=== PATIENT | female | born 1940 | race Caucasian/White ===

== ENCOUNTER 2016-10-15 14:03 | Inpatient (IN) | payer MEDICARE ==
[~2016-10-15] VITALS: Ht 157.4 cm; Wt 60.4 kg
--- NOTE | ~2016-10-15 | DS ---
[place], [place] DISCHARGE SUMMARY NAME: SHELBI SUMNER [facility] #: [id number] UNIT #: [id number] ROOM: 406 DOCTOR: KENJI MARS MD BIRTHDATE: [birth year] DOS: 10/17/2016 HOSPITAL COURSE: This patient is 76 years old. The patient comes into the office with complaints of pain between the shoulder blades, this is mostly when she eats. She also has been increasingly tired and short of breath. On examination, she was found to have rales diffusely throughout the lung baltazar. Exercise oximetry did not show any desaturation. She was admitted with diagnosis of angina and shortness of breath. After admission, the patient was placed on a monitored floor. No arrhythmias were noted. The patient was ordered to rule out WI protocol. Enzymes were negative. Echocardiogram was ordered and a stress test was performed once the patient ruled out. I do not have the echo report, but the patient's stress test did not show any evidence of reversible perfusion defects. A chest x-ray done in the Emergency Room did not show any evidence of PE, but interstitial fibrosis was noted. CT of the chest confirmed it and this could be from history of PE. The patient also had some bronchiectatic changes. The patient was ordered a PFT, showed some obstructive airway disease. She is already on Spiriva and Dulera, which she was placed. For her diabetes, she is on Januvia and glipizide. Blood sugars fairly controlled, no changes made further in her treatment plan. The patient is stable and can be discharged today. She did develop some confusion during the night, got dressed up. Her daughter had to be called, this is most likely from altered sensorium from Ambien that she takes. She usually does not have any issues at home with the medicine. Mental status is back to her baseline, so she can be discharged safely. DISCHARGE MEDICATIONS: Spiriva 1 puff at bedtime, Dulera 100 two puffs daily, gabapentin 300 b.i.d., loratadine 10 daily, warfarin 2.5 daily, zolpidem 5 at bedtime, propranolol 20 b.i.d., simvastatin 20 daily, glipizide 5 daily, Januvia 100 daily, lisinopril 2.5 daily. DISCHARGE DIAGNOSES: 1. Angina, ruled out for myocardial infarction with negative stress test. 2. Chronic interstitial lung disease with obstructive airway disease. 3. Acute respiratory distress syndrome. 4. Benign hypertension. 5. History of pulmonary embolism, deep venous thrombosis, on long-term use of anticoagulants. 6. Primary insomnia. [place], [place] DISCHARGE SUMMARY NAME: SHELBI SUMNER UNIT #: [id number] ROOM: [facility] DOCTOR: KENJI MARS MD BIRTHDATE: [birth year] KENJI MARS MD CM:PATRICIO [id number] KENJI MARS MD 10/17/16 1218 interface
--- NOTE | ~2016-10-15 | ST ---
[place], [place] EXERCISE STRESS TEST REPORT NAME: SHELBI SUMNER [facility] #: [id number] UNIT #: [id number] ROOM: 406 DOCTOR: KENJI MARS MD BIRTHDATE: [birth year] DOS: 10/16/2016 The patient was scheduled for a Lexiscan stress test. REASON FOR TESTING: Evaluation of shortness of breath. After explaining the procedure and obtaining consent, the patient was subjected to Lexiscan infusion 0.4 mg IV, resting heart rate was 73 with a blood pressure of 122/88. EKG showed sinus, occasional PVCs were seen during the infusion. The patient did not have any complaints of chest pain. After the infusion was over, she was injected with Myoview Cardiolite and stress images were taken. ASSESSMENT AND PLAN: Lexiscan stress test without any ST-T wave changes. Arrhythmias in the form of PVCs were noted. Cardiolite images were pending. KENJI MARS MD CM:STRESS:EXERCISE STRESS TEST REPORT [id number] KENJI MARS MD
--- NOTE | ~2016-10-15 | WRIGHTHP ---
[place], [place] PATIENT HISTORY AND PHYSICAL EXAM NAME: SHELBI SUMNER [facility] #: [id number] UNIT #: [id number] ROOM: 406 DOCTOR: KENJI MARS MD BIRTHDATE: [birth year] DOS: 10/15/2016 HISTORY OF PRESENT ILLNESS: The patient is 76 years old who comes in with complaints of pain in between her shoulder blades. The patient states that she has had increasing tiredness and shortness of breath for the last few months. She also has noticed pain in between the shoulder blades, especially when she eats. She denies having any retrosternal chest pain or radiation of pain. Does not have any fever or chills, any cough, any abdominal pain or nausea, any emesis. Does not have any leg edema. PAST MEDICAL HISTORY: Significant for: 1. Benign hypertension. 2. Type 2 diabetes mellitus, zle-dyuzdkj-[id number]. 3. History of PE with pulmonary hypertension. 4. History of cardiac catheterization in 2013. Exact results not known. 5. History of CVA. 6. History of DVT. MEDICATIONS: That she is on are gabapentin 300 b.i.d., glipizide 5 daily, lisinopril 2.5 daily, loratadine 10 daily, propranolol 20 b.i.d., simvastatin 20 daily, Januvia 100 daily, warfarin 2.5 daily, zolpidem 5 at bedtime, ondansetron 4 mg q. 4 p.r.n. SOCIAL HISTORY: Nonsmoker. Does not use any alcohol. She lives alone. Her was a smoker. PHYSICAL EXAMINATION: GENERAL: She is awake and alert and oriented. VITAL SIGNS: Blood pressure is 102/58, pulse of 79, respirations 18, temperature 97.8. LUNGS: Diminished breath sounds. Scattered rales heard all throughout the lung baltazar. HEART: Regular. ABDOMEN: Obese, soft, nontender. EXTREMITIES: Without any edema. ASSESSMENT AND PLAN: 1. The patient presents with pain in between the shoulder blades, especially after eating. Could have an anginal component. The patient has risk factors including benign hypertension. We will go ahead and arrange for a stress test and a troponin level. 2. Complaints of shortness of breath and tiredness. With examination, showing evidence of possible congestive heart failure. The patient has been admitted. IV diuretics will be given. Echocardiogram is ordered. Cardiology consultation is obtained. 3. Chest x-ray showing interstitial lung disease. A CT of the chest is ordered. Maximal bronchodilators were given. PFT and DLCO will be ordered. 4. Chronic history of pulmonary embolism, on long-term use of anticoagulants. Continue Coumadin. Pro time is being checked. [place], [place] PATIENT HISTORY AND PHYSICAL EXAM NAME: SHELBI SUMNER [facility] #[facility] [id number] UNIT #: [id number] ROOM: [facility] DOCTOR: KENJI MARS MD BIRTHDATE: [birth year] KENJI MARS MD CM:HISPHYS:PATIENT HISTORY AND PHYSICAL EXAMINATION 8 5 KENJI MARS MD 10/16/1656 interface
--- NOTE | ~2016-10-15 | PF ---
[place], [place] PULMONARY FUNCTION TEST [id number] UNIT #: [id number] ROOM: 406 DOCTOR: ANANYA BRIGGS MD,CRISTIAN BIRTHDATE: [birth year] DOS: 10/16/2016 ORDERED BY: Dr. Becky Leon. HISTORY: The patient recorded as a 76-year-old female, height of 62 inches, weighs 129 pounds, BMI of 23.6, presented for complete pulmonary function test. The test was ordered by Dr. Becky Leon. The patient reported symptoms of dyspnea with exertion. Past history of CHF was also noted. The patient does have symptoms of productive cough without any wheezing. There was no past tobacco use. SPIROMETRY: The FVC was recorded 2.18 liters, 89% predicted value normal. The post-bronchodilator does not show any changes in the ____ FVC. The FEV1 recorded 1.70 liters as 93% predicted value normal as well without any significant changes occurred post-bronchodilator testing as well. Ratio of FEV1/FVC was recorded as 78%. The flow volume loop for this patient was noted as normal except some coughing noted during the testing. The lung volumes, thoracic gas volume recorded as 89%, residual volume 65%, total lung capacity 75%. The lung volume was noted with mild restrictive lung disease. The patient's lung diffusion recorded 43%, which was severely decreased without correction of carbon monoxide or hemoglobin values. The patient's airway resistance and passive conductance was noted normal, however, partial improvement occurred postbronchodilator test. FINAL IMPRESSION: 1. The test is suggestive of a definitive finding of mild restrictive lung disease, the patient to be clinically correlated to the patient's history as well as the radiology data for this patient. 2. Possibility of mild reversible obstructive lung disease cannot be completely excluded. Clinical correlation would be advised. CRISTIAN HARE MD CM:PFREPORT:PULMONARY FUNCTION TEST [id number] CRISTIAN BRIGGS MD
--- NOTE | ~2016-10-15 | PR ---
[place], [place] PROGRESS NOTE NAME: SHELBI SUMNER [facility] #: [id number] UNIT #: [id number] ROOM: 406 DOCTOR: KENJI MARS MD BIRTHDATE: [birth year] DOS: 10/17/2016 SUBJECTIVE: The patient is doing fine without any complaints. Denies any chest pains or palpitations. She was pretty anxious during the night and got slightly confused and dressed up and wanted to leave. Her daughter came and sat with her. This morning, she is pretty lucid and knows what is going on. She is anxious and wants to go home. OBJECTIVE: VITAL SIGNS: Blood pressure is 135/85, pulse of 98, respirations 20, temperature 98.6. LUNGS: Diminished breath sounds, clear. HEART: Regular. ABDOMEN: Soft. EXTREMITIES: Without any edema. ASSESSMENT AND PLAN: 1. Chest pain, anginal in nature, also pain between the shoulder blades. She was ruled out for myocardial infarction, underwent a stress test which did not show any evidence of reversible perfusion defects. 2. Interstitial lung disease with history of pulmonary embolism. The patient has obstructive lung disease on a PFT, which is done yesterday. The patient is placed on inhalers and doing well. 3. Type 2 diabetes mellitus. Blood sugar is 183 this morning. The patient's medications will be readjusted, but the patient is stable and can be discharged to home today. KENJI MARS MD CM:PNTRANS [id number] KENJI MARS MD 10/17/16 1419 interface
[~2016-10-15 14:03] MED LIST: ALAVERT10 M1 PO; AMBIEN5 MG PO; ASPIRIN81 M1 PO; CALTRATE 600 +1 TA1 PO; CHOLESTEROL MA600 MG PO; CILOXAN 5 ML5 M1 OT; CIPRO250 MG PO; COUMADIN2 M1 PO; EFFEXOR37.5 MG PO; EPA FISH OIL1000 MG PO; FLUTICASON0.05 MG/A2 NAS; GLIPIZIDE5 MG PO; HYDROCHLOROTH12.5 M1 PO; INDERAL LA60 M1 PO; INDERAL40 MG PO; JANTOVEN PO; JANTOVEN2.5 MG PO; JANUVIA50 MG PO; LISINOPRIL10 MG PO; METFORMIN500 MG PO; NEURONTIN300 MG PO; NIACIN1000 MG PO; PERCOCET 325 MG1 TA2 PO; PRILOSEC40 MG PO; PROPRANOLOL HCL20 MG PO; RED YEAST RICE600 MG PO; TRICOR48 MG PO; VICODIN 5/500 505 M1 PO; ZOFRAN ODT4 MG SL; ZOLPIDEM5 MG PO
[2016-10-15 14:30] VITALS: BP 143/60
[2016-10-15] MEDS ORDERED: SIMVASTATIN20 MG PO (14:47)
[2016-10-15] MEDS ORDERED: GLIPIZIDE5 MG PO (14:48)
[2016-10-15] MEDS ORDERED: JANUVIA100 MG PO (14:51)
[2016-10-15] MEDS ORDERED: LISINOPRIL5 MG PO (14:52)
[2016-10-15 15:31] LABS: BASO # 0.1 10*3/uL (0.0-0.1); BASO % 0.5 % (0.0-1.0); EOS # 0.2 10*3/uL (0.0-0.4); EOS % 1.6 % (1.0-4.0); HEMATOCRIT 38.6 % (37.0-47.0); HEMOGLOBIN 12.9 g/dl (12.0-16.0); LYMPH # 2.9 10*3/uL (1.3-4.4); LYMPH % 29.6 % (27.0-41.0); MEAN CELL VOLUME 98.7 fl (81.0-99.0); MEAN CORPUSCULAR HGB CONC 33.4 g/dl (33.0-37.0); MEAN PLATELET VOLUME 9.5 fl (9.6-12.3); MONO # 1.1 10*3/uL (0.1-1.0); MONO % 11.7 % (3.0-9.0); NEUT # 5.5 10*3/uL (2.3-7.9); NEUT % 56.3 % (47.0-73.0); PLATELET COUNT AUTOMATED 262 10*3/uL (130-400); RED BLOOD COUNT 3.91 10*6/uL (4.10-5.10); RED CELL DISTRI WIDTH 13.2 % (0-14.5); WHITE BLOOD COUNT 9.7 10*3/uL (4.8-10.8)
[2016-10-15 16:00] VITALS: BP 114/62
[2016-10-15 16:03] LABS: INTERNATIONAL NORM RATIO 2.4 (2.0-3.5); PROTHROMBIN TIME 27.4 SECONDS (9.0-12.4)
[2016-10-15 17:03] LABS: BUN 22 mg/dl (7-24); CARBON DIOXIDE 23 mmol/L (21-32); CHLORIDE 107 mmol/L (98-107); EST GLOM FILT AFRICAN AMERICAN > 60 ml/min; GLUCOSE 94 mg/dL (65-99); POTASSIUM 4.1 mmol/L (3.5-5.1); SODIUM 142 mmol/L (136-145)
[2016-10-15 20:00] VITALS: BP 120/67
[2016-10-16] VITALS: BP 100/47
[2016-10-16 08:00] VITALS: BP 102/58
[2016-10-16 12:00] VITALS: BP 110/64
[2016-10-16 16:00] VITALS: BP 98/69
[2016-10-16 20:00] VITALS: BP 106/77
[2016-10-17] VITALS: BP 135/85
[2016-10-17] MEDS ORDERED: SPIRIVA RESPIMAT4 G1 IH (07:44)
[2016-10-17] MEDS ORDERED: DULE1ARO1 INH (07:44)
[2016-10-17 08:00] VITALS: BP 116/72
== END 2016-10-17 08:30 | disposition home or self-care (01) | DRG 311 ==
LOC: 4E 14:03
PROVIDERS: Internal Medicine
DX: I20.9 Angina pectoris, unspecified (principal); J84.9 Interstitial pulmonary disease, unspecified; J80 Acute respiratory distress syndrome; I50.9 Heart failure, unspecified; I11.0 Hypertensive heart disease with heart failure; I27.2 Other secondary pulmonary hypertension; J84.10 Pulmonary fibrosis, unspecified; E11.9 Type 2 diabetes mellitus without complications; Z60.2 Problems related to living alone; F51.01 Primary insomnia; Z86.73 Personal history of transient ischemic attack (TIA), and cerebral infarction without residual deficits; Z86.718 Personal history of other venous thrombosis and embolism; Z86.711 Personal history of pulmonary embolism; Z79.01 Long term (current) use of anticoagulants

== ENCOUNTER → 2017-08-03 | Outpatient (CLI) | payer MEDICARE ==
[~2017-08-03] MED LIST changes: +DULE1ARO1 INH; +JANUVIA100 MG PO; +LISINOPRIL5 MG PO; +SIMVASTATIN20 MG PO; +SPIRIVA RESPIMAT4 G1 IH
[2017-08-03 11:35] LABS: HEMATOCRIT 40.6 % (37.0-47.0); HEMOGLOBIN 13.4 g/dl (12.0-16.0); MEAN CORPUSCULAR HGB 32.7 pg (27.0-31.0); MEAN PLATELET VOLUME 9.6 fl (9.6-12.3); RED BLOOD COUNT 4.1 10*6/uL (4.10-5.10); RED CELL DISTRI WIDTH 13.4 % (0-14.5); WHITE BLOOD COUNT 9.8 10*3/uL (4.8-10.8)
[2017-08-03 11:56] LABS: ALBUMIN 3.9 gm/dl (3.1-4.5); CREATININE 1.27 mg/dL (0.55-1.02); POTASSIUM 4.5 mmol/L (3.5-5.1); TOTAL PROTEIN 8.1 gm/dL (6.4-8.2)
== END | disposition home or self-care (01) ==
LOC: RESCLI 07-20 01:02
PROVIDERS: Internal Medicine
DX: E11.22 Type 2 diabetes mellitus with diabetic chronic kidney disease (principal); N18.9 Chronic kidney disease, unspecified; F51.01 Primary insomnia; E78.2 Mixed hyperlipidemia; K21.9 Gastro-esophageal reflux disease without esophagitis; J30.9 Allergic rhinitis, unspecified; I27.82 Chronic pulmonary embolism; Z88.1 Allergy status to other antibiotic agents; Z88.2 Allergy status to sulfonamides

== ENCOUNTER → 2017-10-26 | Outpatient (CLI) | payer MEDICARE | END | disposition home or self-care (01) | LOC: RESCLI 01:36 | DX: E11.22 Type 2 diabetes mellitus with diabetic chronic kidney disease (principal); I12.9 Hypertensive chronic kidney disease with stage 1 through stage 4 chronic kidney disease, or unspecified chronic kidney disease; F51.01 Primary insomnia; J30.9 Allergic rhinitis, unspecified; E78.2 Mixed hyperlipidemia; K21.9 Gastro-esophageal reflux disease without esophagitis; I27.82 Chronic pulmonary embolism; E11.42 Type 2 diabetes mellitus with diabetic polyneuropathy; G43.009 Migraine without aura, not intractable, without status migrainosus; E55.9 Vitamin D deficiency, unspecified; N18.9 Chronic kidney disease, unspecified ==

== ENCOUNTER → 2017-10-28 | Outpatient (CLI) | payer MEDICARE ==
[2017-10-28 09:02] LABS: HEMATOCRIT 42.6 % (37.0-47.0); HEMOGLOBIN 13.8 g/dl (12.0-16.0); MEAN CELL VOLUME 100.9 fl (81.0-99.0); MEAN CORPUSCULAR HGB 32.7 pg (27.0-31.0); MEAN CORPUSCULAR HGB CONC 32.4 g/dl (33.0-37.0); MEAN PLATELET VOLUME 9.7 fl (9.6-12.3); RED BLOOD COUNT 4.22 10*6/uL (4.10-5.10); RED CELL DISTRI WIDTH 13.3 % (0-14.5); WHITE BLOOD COUNT 7.4 10*3/uL (4.8-10.8)
[2017-10-28 09:55] LABS: THYROID STIM HORMONE (HS) 2.24 uIU/ml (0.358-4.75)
[2017-10-28 10:32] LABS: VITAMIN D, 25-HYDROXY 64.8 ng/mL (30-100)
== END | disposition home or self-care (01) ==
LOC: LAB 07:55
PROVIDERS: Internal Medicine
DX: E11.22 Type 2 diabetes mellitus with diabetic chronic kidney disease (principal); E78.2 Mixed hyperlipidemia; E11.42 Type 2 diabetes mellitus with diabetic polyneuropathy; E55.9 Vitamin D deficiency, unspecified

== ENCOUNTER → 2018-03-16 | Outpatient (CLI) | payer MEDICARE ==
[2018-03-16 13:41] LABS: BASO % 0.5 % (0.0-1.0); EOS # 0.2 10*3/uL (0.0-0.4); EOS % 2.8 % (1.0-4.0); HEMATOCRIT 38.2 % (37.0-47.0); HEMOGLOBIN 12.3 g/dl (12.0-16.0); LYMPH # 2.2 10*3/uL (1.3-4.4); MEAN CELL VOLUME 103.2 fl (81.0-99.0); MEAN CORPUSCULAR HGB 33.2 pg (27.0-31.0); MEAN CORPUSCULAR HGB CONC 32.2 g/dl (33.0-37.0); MEAN PLATELET VOLUME 9.6 fl (9.6-12.3); MONO # 0.9 10*3/uL (0.1-1.0); MONO % 10.2 % (3.0-9.0); NEUT # 5.3 10*3/uL (2.3-7.9); NEUT % 61.2 % (47.0-73.0); PLATELET COUNT AUTOMATED 247 10*3/uL (130-400); RED CELL DISTRI WIDTH 13.2 % (0-14.5); WHITE BLOOD COUNT 8.7 10*3/uL (4.8-10.8)
[2018-03-16 14:22] LABS: ALBUMIN 3.7 gm/dl (3.1-4.5); POTASSIUM 3.7 mmol/L (3.5-5.1)
[2018-03-16 14:33] LABS: CREATININE 1.2 mg/dL (0.55-1.02); TOTAL PROTEIN 7.6 gm/dL (6.4-8.2)
[2018-03-16 14:44] LABS: VITAMIN D, 25-HYDROXY 24.1 ng/mL (30-100)
== END | disposition home or self-care (01) ==
LOC: RESCLI 02:05 → LAB 02:05 → US 02:05 → RESCLI 16:29
PROVIDERS: Internal Medicine
DX: E78.2 Mixed hyperlipidemia (principal); R25.2 Cramp and spasm; M79.89 Other specified soft tissue disorders; R53.83 Other fatigue; M79.605 Pain in left leg; E55.9 Vitamin D deficiency, unspecified; E11.22 Type 2 diabetes mellitus with diabetic chronic kidney disease

== ENCOUNTER → 2018-03-28 | Outpatient (CLI) | payer MEDICARE | END | disposition home or self-care (01) | LOC: LAB 09:15 | DX: E83.30 Disorder of phosphorus metabolism, unspecified (principal) ==

== ENCOUNTER → 2018-03-29 | Outpatient (CLI) | payer MEDICARE | END | disposition home or self-care (01) | LOC: LAB 03:15 | DX: E83.30 Disorder of phosphorus metabolism, unspecified (principal) ==

== ENCOUNTER → 2018-04-12 | Outpatient (CLI) | payer MEDICARE | END | disposition home or self-care (01) | LOC: LAB 09:27 | DX: E83.30 Disorder of phosphorus metabolism, unspecified (principal) ==

== ENCOUNTER → 2018-04-21 | Outpatient (CLI) | payer MEDICARE | END | disposition home or self-care (01) | LOC: RESCLI 03:29 | DX: I12.9 Hypertensive chronic kidney disease with stage 1 through stage 4 chronic kidney disease, or unspecified chronic kidney disease (principal); E11.22 Type 2 diabetes mellitus with diabetic chronic kidney disease; E11.42 Type 2 diabetes mellitus with diabetic polyneuropathy; N18.3 Chronic kidney disease, stage 3 (moderate); R60.0 Localized edema; G43.009 Migraine without aura, not intractable, without status migrainosus; E55.9 Vitamin D deficiency, unspecified; J30.9 Allergic rhinitis, unspecified; I27.82 Chronic pulmonary embolism; F51.01 Primary insomnia; E78.2 Mixed hyperlipidemia; K21.9 Gastro-esophageal reflux disease without esophagitis; R53.83 Other fatigue; R25.2 Cramp and spasm; L29.9 Pruritus, unspecified; E53.8 Deficiency of other specified B group vitamins; Z79.899 Other long term (current) drug therapy; Z88.8 Allergy status to other drugs, medicaments and biological substances ==

== ENCOUNTER → 2018-04-29 | Outpatient (CLI) | payer MEDICARE | END | disposition home or self-care (01) | LOC: LAB 09:43 | DX: E11.22 Type 2 diabetes mellitus with diabetic chronic kidney disease (principal) ==

== ENCOUNTER → 2018-06-06 | Outpatient (CLI) | payer MEDICARE | END | disposition home or self-care (01) | LOC: LAB 03:56 | DX: N18.3 Chronic kidney disease, stage 3 (moderate) (principal) ==

== ENCOUNTER → 2018-06-13 | Outpatient (CLI) | payer MEDICARE | END | disposition home or self-care (01) | LOC: US 11:12 | DX: N18.3 Chronic kidney disease, stage 3 (moderate) (principal) ==

== ENCOUNTER → 2018-06-29 | Outpatient (CLI) | payer MEDICARE | END | disposition home or self-care (01) | LOC: RESCLI 01:58 | DX: I12.9 Hypertensive chronic kidney disease with stage 1 through stage 4 chronic kidney disease, or unspecified chronic kidney disease (principal); E11.22 Type 2 diabetes mellitus with diabetic chronic kidney disease; E11.42 Type 2 diabetes mellitus with diabetic polyneuropathy; N18.3 Chronic kidney disease, stage 3 (moderate); J30.9 Allergic rhinitis, unspecified; G43.009 Migraine without aura, not intractable, without status migrainosus; E55.9 Vitamin D deficiency, unspecified; I27.82 Chronic pulmonary embolism; F51.01 Primary insomnia; E78.2 Mixed hyperlipidemia; K21.9 Gastro-esophageal reflux disease without esophagitis; R53.83 Other fatigue; R25.2 Cramp and spasm; L29.9 Pruritus, unspecified; E53.8 Deficiency of other specified B group vitamins; Z79.899 Other long term (current) drug therapy; Z90.49 Acquired absence of other specified parts of digestive tract; Z88.8 Allergy status to other drugs, medicaments and biological substances; Z90.710 Acquired absence of both cervix and uterus ==

== ENCOUNTER 2018-07-13 | Inpatient (IN) | payer MEDICARE ==
--- NOTE | ~2018-07-13 | EKG ---
[place], [place] ELECTROCARDIOGRAM REPORT NAME: SHELBI SUMNER UNIT #: [id number] ROOM: 420 DOCTOR: GIANA DRAFT REPORT BIRTHDATE: [birth year] [facility] Test Date: 2018-07-13 Test Time: 11:23:01 Pat Name: SHELBI SUMNER Department: Room: 420 Gender: F Roof Bolter: Lilli Murry : 1940 Requested By: JEREMY THURSTON Order Number: [id number] Reading MD: Bebo Peng MD Measurements Intervals Delevan Rate: 87 P: 19 UT: 168 QRS: -8 QRSD: 93 T: 2 QT: 345 QTc: 415 Interpretive Statements Sinus rhythm Low voltage, precordial leads Electronically Signed On 07-14-2018 18:08:13 PST by Bebo Peng MD CM:EKGRPT:ELECTROCARDIOGRAM REPORT [id number] JEREMY RASHEED DRAFT REPORT JEREMY THURSTON DO
[2018-07-13 11:01] VITALS: BP 111/41
[2018-07-13 11:34] LABS: BASO % 0.2 % (0.0-1.0); EOS # 0.1 10*3/uL (0.0-0.4); EOS % 0.5 % (1.0-4.0); HEMATOCRIT 34.7 % (37.0-47.0); HEMOGLOBIN 11.8 g/dl (12.0-16.0); LYMPH % 7.3 % (27.0-41.0); MEAN CELL VOLUME 98.9 fl (81.0-99.0); MEAN CORPUSCULAR HGB 33.6 pg (27.0-31.0); MEAN PLATELET VOLUME 10.2 fl (9.6-12.3); MONO # 1.5 10*3/uL (0.1-1.0); MONO % 11.1 % (3.0-9.0); NEUT # 10.5 10*3/uL (2.3-7.9); NEUT % 80.4 % (47.0-73.0); PLATELET COUNT AUTOMATED 333 10*3/uL (130-400); RED BLOOD COUNT 3.51 10*6/uL (4.10-5.10); RED CELL DISTRI WIDTH 13.2 % (0-14.5); WHITE BLOOD COUNT 13.1 10*3/uL (4.8-10.8)
[2018-07-13 11:50] LABS: BILIRUBIN NEGATIVE (NEGATIVE); BLOOD 2+ (NEGATIVE); CLARITY CLOUDY (CLEAR); COLOR YELLOW (YELLOW); GLUCOSE 1+ (NEGATIVE); KETONE NEGATIVE (NEGATIVE); LEUKO ESTERASE 2+ (NEGATIVE); NITRITE NEGATIVE (NEGATIVE); PH 5.5 (5.0-9.0); SPECIFIC GRAVITY >= 1.030 (1.005-1.030); UROBILINOGEN 0.2 E.U./dl (0.2-1.0)
[2018-07-13 11:51] LABS: ALBUMIN 3.2 gm/dl (3.1-4.5); ALKALINE PHOSPHATASE 42 U/L (45-117); BUN 14 mg/dl (7-24); CHLORIDE 104 mmol/L (98-107); CREATININE 1.35 mg/dL (0.55-1.02); POTASSIUM 3.7 mmol/L (3.5-5.1); SGOT/AST 19 IU/L (3-35); SGPT/ALT 22 U/L (12-78); SODIUM 137 mmol/L (136-145); TOTAL PROTEIN 7.9 gm/dL (6.4-8.2)
[2018-07-13 12:03] LABS: TROPONIN I < 0.015 ng/ml (<0.045)
[2018-07-13 12:07] LABS: WBC 51-100 wbc/hpf (0-5)
[2018-07-13 12:08] LABS: BACTERIA 2+
[2018-07-13 12:15] VITALS: BP 107/53
[2018-07-13 12:20] LABS: INTERNATIONAL NORM RATIO 1.1 (2.0-3.5)
[2018-07-13 13:46] VITALS: BP 96/40
--- NOTE | 2018-07-13 14:38 | NUR ---
THE PT IS A&OX3 AND DENIES ANY WOUNDS
[2018-07-13 15:00] VITALS: BP 119/66
--- NOTE | 2018-07-13 15:03 | NUR ---
A 78, admitted to , under the services of SUZETTE Sorensen DO with a diagnosis of FALL. Chief complaint is HAD A FALL AT HOME YESTERDAY. Patient arrived via bed from ER. Monitor applied. Initial assessment completed. Vital signs taken and recorded. SUZETTE SORENSEN DO notified of admission to the unit. Orders received. See assessment for past medical history, medications and allergies. Patient and/or family oriented to unit. [facility]. Clothing/patient valuable form completed. TEMO SHARMA
[2018-07-13] MEDS ORDERED: SIMVASTATIN5 MG PO (15:26)
[2018-07-13] MEDS ORDERED: SPIRIVA18 MCG PO (15:27)
[2018-07-13] MEDS ORDERED: XARE20MG PO (15:28)
[2018-07-13] MEDS ORDERED: FLONASE ALLERG9.9 ML NAS (15:29)
[2018-07-13] MEDS ORDERED: VITAMIN B1250 MCG PO (15:32)
[2018-07-13] MEDS ORDERED: VITAMIN D-32000 UNI1 PO (15:33)
--- NOTE | 2018-07-13 19:30 | NUR ---
ASSUMED CARE OF PT AT THIS TIME. PATIENT AWAKE SITTING UP IN BED EATING CRACKERS. DAUGHTER AT BEDSIDE. PATIENT VOICES NO COMPLAINTS. WILL MONITOR. CALL LIGHT LEFT IN REACH.
[2018-07-13 20:00] VITALS: BP 109/59
--- NOTE | 2018-07-13 23:41 | NUR ---
PATIENT MEDICATED WITH PO TYLENOL PER PRN ORDER FOR TEMP 101.1. WILL MONITOR EFFECTIVENESS. CALL LIGHT LEFT IN REACH.
[2018-07-14] VITALS: BP 98/52
--- NOTE | 2018-07-14 00:45 | NUR ---
EARLIER TYLENOL EFFECTIVE. ORAL TEMP NOW 98.8, DOWN FROM 101.1. WILL CONTINUE TO MONITOR. PATIENT VOICES NO COMPLAINTS. CALL LIGHT LEFT IN REACH. BED ALARM INTACT.
[2018-07-14 04:00] VITALS: BP 104/62
[2018-07-14 05:53] LABS: BASO % 0.3 % (0.0-1.0); EOS # 0.2 10*3/uL (0.0-0.4); EOS % 1.5 % (1.0-4.0); HEMATOCRIT 31.4 % (37.0-47.0); HEMOGLOBIN 10.1 g/dl (12.0-16.0); LYMPH # 2.3 10*3/uL (1.3-4.4); LYMPH % 21.2 % (27.0-41.0); MEAN CELL VOLUME 101.3 fl (81.0-99.0); MEAN CORPUSCULAR HGB 32.6 pg (27.0-31.0); MEAN CORPUSCULAR HGB CONC 32.2 g/dl (33.0-37.0); MEAN PLATELET VOLUME 9.4 fl (9.6-12.3); MONO # 1.3 10*3/uL (0.1-1.0); MONO % 11.7 % (3.0-9.0); NEUT % 64.8 % (47.0-73.0); PLATELET COUNT AUTOMATED 262 10*3/uL (130-400); RED CELL DISTRI WIDTH 13.2 % (0-14.5); WHITE BLOOD COUNT 10.7 10*3/uL (4.8-10.8)
[2018-07-14 06:06] LABS: ALBUMIN 2.6 gm/dl (3.1-4.5); ALKALINE PHOSPHATASE 34 U/L (45-117); BUN 11 mg/dl (7-24); CHLORIDE 110 mmol/L (98-107); CHOLESTEROL 136 mg/dL (<200); CREATININE 1.06 mg/dL (0.55-1.02); FREE T4 1.37 ng/dl (0.76-1.46); HDL CHOLESTEROL 31 mg/dl (40-60); LDL CHOLESTEROL 84 mg/dL (9-159); PHOSPHOROUS 4.2 mg/dL (2.5-4.9); POTASSIUM 3.7 mmol/L (3.5-5.1); SGOT/AST 16 IU/L (3-35); SGPT/ALT 19 U/L (12-78); SODIUM 142 mmol/L (136-145); TOTAL PROTEIN 6.9 gm/dL (6.4-8.2); TRIGLYCERIDES 103 mg/dl (<150); VLDL CHOLESTEROL 21 mg/dL (6-40)
--- NOTE | 2018-07-14 07:49 | NUR ---
PATIENT SITTING UP IN CHAIR. BREAKFAST TRAY SET UP. BODY ALARM ATTACHED FOR SAFETY. PT ALERT/ORIENTED X3. DENIES ANY PAIN/DISCOMFORT AT THIS TIME. DENIES ANY DIZZINESS AT THIS TIME. CALL LIGHT WITHIN REACH. WILL CONTINUE TO MONITOR. VSS.
[2018-07-14 08:00] VITALS: BP 100/56
--- NOTE | 2018-07-14 08:00 | NUR ---
PHYSICAL THERAPY Nursing screen received. PT orders also received. Thank you. Trupti Cuevas,PT
--- NOTE | 2018-07-14 09:00 | NUR ---
Sales And Production Manager in to talk to patient. Patient states lives at home with alone. There are few steps in the home. Physician: [facility] [place] [facility] Patient's level of ADLs: INDEPENDENT Patient has working utilities: all working DME: cane Follow-up physician's appointment after d/c: will be made by hosptialist nurse director upon discharge Does patient want to access PORTAL?: no Discharge plan discussed with patient, patient lives at home alone, she is independent in adls and has a cane but only uses it outside. patient stated she has steps to the garage but is able to do them without difficulty. discussed with her her recent fall and possibly a short term usp stay for rehab. patient stated she didn't feel she needed a skilled at this time, also discussed with her VNA and she stated she has 3 nurses in her family, one of which is her daughter that lives across the street. patient denies any home needs at this time, case management will follow. YANELY CANNON
--- NOTE | 2018-07-14 10:39 | NUR ---
Patient offered Occupational Therapy evaluation this date. Patient reports that she has been ambulating to the bathroom independently and she pleasantly declines Occupational Therapy indicating that she "just wants to go home". She feels that she can resume her prior level of independence. Discharge OT referral per patient's request. Thank you for this referral Josy Stephens OTR/L
--- NOTE | 2018-07-14 11:10 | NUR ---
PHYSICAL THERAPY PAtient respectfully declines PT services. Encouraged patient to particpate, patient continues ot decline an rpeorts she has no needs. Thank you for this referral. Trupti Cuevas,PT
[2018-07-14 12:00] VITALS: BP 112/50
[2018-07-14 16:00] VITALS: BP 101/60
--- NOTE | 2018-07-14 18:52 | NUR ---
PT GIVEN PO TYLENOL PER PRN ORDER FOR C/O HEADACHE. WILL MONITOR EFFECTIVENESS.
[2018-07-14 20:00] VITALS: BP 114/60
--- NOTE | 2018-07-14 23:25 | NUR ---
24 HR chart check completed.
[2018-07-15] VITALS: BP 123/57
--- NOTE | 2018-07-15 01:45 | NUR ---
AWAKEND UP TO BATHROOM WITH MINIMAL ASSISTANCE VOIDED AND BACK TO BED.
[2018-07-15 07:53] VITALS: BP 138/76
--- NOTE | 2018-07-15 09:00 | NUR ---
case management visits with patient, patient states she will be going home when able and denies any home needs
--- NOTE | 2018-07-15 10:23 | NUR ---
Discharge instructions reviewed with patient/family. Patient receptive and verbalizes understanding. Follow-up care arranged. Written instructions given to patient/family. TORIE COSTA
== END 2018-07-15 10:23 | disposition home or self-care (01) | DRG 689 ==
PROVIDERS: Physician Assistant; Registered Nurse; ADMIT Emergency Medicine
DX: N30.00 Acute cystitis without hematuria (principal); G93.41 Metabolic encephalopathy; I50.32 Chronic diastolic (congestive) heart failure; E44.0 Moderate protein-calorie malnutrition; Z68.43 Body mass index [BMI] 50.0-59.9, adult; I13.0 Hypertensive heart and chronic kidney disease with heart failure and stage 1 through stage 4 chronic kidney disease, or unspecified chronic kidney disease; R65.10 Systemic inflammatory response syndrome (SIRS) of non-infectious origin without acute organ dysfunction; J06.9 Acute upper respiratory infection, unspecified; W19.XXXA Unspecified fall, initial encounter; R55 Syncope and collapse; N18.3 Chronic kidney disease, stage 3 (moderate); J44.9 Chronic obstructive pulmonary disease, unspecified; Z87.01 Personal history of pneumonia (recurrent); E11.22 Type 2 diabetes mellitus with diabetic chronic kidney disease; E11.41 Type 2 diabetes mellitus with diabetic mononeuropathy; E53.8 Deficiency of other specified B group vitamins; E55.9 Vitamin D deficiency, unspecified; Z86.718 Personal history of other venous thrombosis and embolism; Z90.49 Acquired absence of other specified parts of digestive tract; Z98.891 History of uterine scar from previous surgery

== ENCOUNTER → 2018-07-22 | Outpatient (CLI) | payer MEDICARE ==
[~2018-07-22] MED LIST changes: +FLONASE ALLERG9.9 ML NAS; +SIMVASTATIN5 MG PO; +SPIRIVA18 MCG PO; +VITAMIN B1250 MCG PO; +VITAMIN D-32000 UNI1 PO; +XARE20MG PO
[2018-07-22 09:16] LABS: BILIRUBIN NEGATIVE (NEGATIVE); BLOOD TRACE-INTACT (NEGATIVE); CLARITY CLEAR (CLEAR); COLOR YELLOW (YELLOW); GLUCOSE NEGATIVE (NEGATIVE); KETONE NEGATIVE (NEGATIVE); LEUKO ESTERASE NEGATIVE (NEGATIVE); NITRITE NEGATIVE (NEGATIVE); PH 5.5 (5.0-9.0); SPECIFIC GRAVITY <= 1.005 (1.005-1.030); UROBILINOGEN 0.2 E.U./dl (0.2-1.0)
[2018-07-22 09:20] LABS: RBC 0-2 rbc/hpf (0-2)
== END | disposition home or self-care (01) ==
LOC: LAB 04:15
PROVIDERS: Registered Nurse
DX: N39.0 Urinary tract infection, site not specified (principal)

== ENCOUNTER → 2018-08-03 | Outpatient (CLI) | payer MEDICARE | END | disposition home or self-care (01) | LOC: RESCLI 02:50 | DX: Z09 Encounter for follow-up examination after completed treatment for conditions other than malignant neoplasm (principal); I13.0 Hypertensive heart and chronic kidney disease with heart failure and stage 1 through stage 4 chronic kidney disease, or unspecified chronic kidney disease; E11.22 Type 2 diabetes mellitus with diabetic chronic kidney disease; E11.42 Type 2 diabetes mellitus with diabetic polyneuropathy; N18.3 Chronic kidney disease, stage 3 (moderate); I50.42 Chronic combined systolic (congestive) and diastolic (congestive) heart failure; J30.9 Allergic rhinitis, unspecified; G43.009 Migraine without aura, not intractable, without status migrainosus; E55.9 Vitamin D deficiency, unspecified; I27.82 Chronic pulmonary embolism; F51.01 Primary insomnia; E78.2 Mixed hyperlipidemia; K21.9 Gastro-esophageal reflux disease without esophagitis; R53.83 Other fatigue; R25.2 Cramp and spasm; L29.9 Pruritus, unspecified; E53.8 Deficiency of other specified B group vitamins; Z79.899 Other long term (current) drug therapy; Z88.8 Allergy status to other drugs, medicaments and biological substances ==

== ENCOUNTER → 2018-09-15 | Outpatient (CLI) | payer MEDICARE | END | disposition home or self-care (01) | LOC: LAB 08:39 | DX: E11.22 Type 2 diabetes mellitus with diabetic chronic kidney disease (principal); N18.9 Chronic kidney disease, unspecified ==

== ENCOUNTER → 2018-11-30 | Outpatient (CLI) | payer MEDICARE ==
[~2018-11-30] MED LIST changes: +LOSARTAN POTASS25 M1 PO
== END | disposition home or self-care (01) ==
LOC: RESCLI 01:18
DX: E11.42 Type 2 diabetes mellitus with diabetic polyneuropathy (principal); G43.009 Migraine without aura, not intractable, without status migrainosus; I13.0 Hypertensive heart and chronic kidney disease with heart failure and stage 1 through stage 4 chronic kidney disease, or unspecified chronic kidney disease; E11.22 Type 2 diabetes mellitus with diabetic chronic kidney disease; I50.42 Chronic combined systolic (congestive) and diastolic (congestive) heart failure; N18.3 Chronic kidney disease, stage 3 (moderate); E78.2 Mixed hyperlipidemia; J30.9 Allergic rhinitis, unspecified; I27.82 Chronic pulmonary embolism; K21.9 Gastro-esophageal reflux disease without esophagitis; F51.01 Primary insomnia; I83.893 Varicose veins of bilateral lower extremities with other complications; Z79.899 Other long term (current) drug therapy

== ENCOUNTER → 2018-12-20 | Outpatient (CLI) | payer MEDICARE | END | disposition home or self-care (01) | LOC: RESCLI 01:25 | DX: E11.42 Type 2 diabetes mellitus with diabetic polyneuropathy (principal); G43.009 Migraine without aura, not intractable, without status migrainosus; E78.2 Mixed hyperlipidemia; I13.0 Hypertensive heart and chronic kidney disease with heart failure and stage 1 through stage 4 chronic kidney disease, or unspecified chronic kidney disease; E11.22 Type 2 diabetes mellitus with diabetic chronic kidney disease; I50.42 Chronic combined systolic (congestive) and diastolic (congestive) heart failure; N18.3 Chronic kidney disease, stage 3 (moderate); J30.9 Allergic rhinitis, unspecified; I27.82 Chronic pulmonary embolism; K21.9 Gastro-esophageal reflux disease without esophagitis; F51.01 Primary insomnia; I83.893 Varicose veins of bilateral lower extremities with other complications; E55.9 Vitamin D deficiency, unspecified; J44.9 Chronic obstructive pulmonary disease, unspecified; E53.8 Deficiency of other specified B group vitamins; Z79.899 Other long term (current) drug therapy ==

== ENCOUNTER → 2019-01-31 | Outpatient (CLI) | payer MEDICARE ==
[~2019-01-31] MED LIST changes: -LOSARTAN POTASS25 M1 PO
[2019-01-31 12:20] LABS: BASO # 0.1 10*3/uL (0.0-0.1); BASO % 0.5 % (0.0-1.0); EOS # 0.2 10*3/uL (0.0-0.4); EOS % 2.4 % (1.0-4.0); HEMATOCRIT 41.7 % (37.0-47.0); HEMOGLOBIN 13.2 g/dl (12.0-16.0); LYMPH # 2.3 10*3/uL (1.3-4.4); LYMPH % 24.6 % (27.0-41.0); MEAN CORPUSCULAR HGB 32.9 pg (27.0-31.0); MEAN CORPUSCULAR HGB CONC 31.7 g/dl (33.0-37.0); MEAN PLATELET VOLUME 9.8 fl (9.6-12.3); MONO # 1.1 10*3/uL (0.1-1.0); MONO % 11.7 % (3.0-9.0); NEUT # 5.7 10*3/uL (2.3-7.9); NEUT % 60.4 % (47.0-73.0); PLATELET COUNT AUTOMATED 286 10*3/uL (130-400); RED BLOOD COUNT 4.01 10*6/uL (4.10-5.10); RED CELL DISTRI WIDTH 13.2 % (0-14.5); WHITE BLOOD COUNT 9.5 10*3/uL (4.8-10.8)
[2019-01-31 12:27] LABS: BILIRUBIN NEGATIVE (NEGATIVE); BLOOD TRACE-INTACT (NEGATIVE); CLARITY SL CLOUDY (CLEAR); COLOR YELLOW (YELLOW); GLUCOSE NEGATIVE (NEGATIVE); KETONE NEGATIVE (NEGATIVE); LEUKO ESTERASE TRACE (NEGATIVE); NITRITE NEGATIVE (NEGATIVE); UROBILINOGEN 0.2 E.U./dl (0.2-1.0)
[2019-01-31 12:45] LABS: ALBUMIN 3.9 gm/dl (3.1-4.5); ALKALINE PHOSPHATASE 52 U/L (45-117); BUN 26 mg/dl (7-24); CHLORIDE 107 mmol/L (98-107); CREATININE 1.24 mg/dL (0.55-1.02); IRON 64 ug/dL (50-170); POTASSIUM 4.2 mmol/L (3.5-5.1); SGOT/AST 26 IU/L (3-35); SGPT/ALT 26 U/L (12-78); SODIUM 138 mmol/L (136-145); TOTAL IRON BINDING CAPACITY 289 ug/dl (250-450); TOTAL PROTEIN 7.9 gm/dL (6.4-8.2)
[2019-01-31 13:15] LABS: BACTERIA 1+; WBC 21-30 wbc/hpf (0-5)
== END | disposition home or self-care (01) ==
LOC: RESCLI 01:03
PROVIDERS: Internal Medicine
DX: J44.9 Chronic obstructive pulmonary disease, unspecified (principal); I12.9 Hypertensive chronic kidney disease with stage 1 through stage 4 chronic kidney disease, or unspecified chronic kidney disease; N18.3 Chronic kidney disease, stage 3 (moderate); E11.22 Type 2 diabetes mellitus with diabetic chronic kidney disease; E11.42 Type 2 diabetes mellitus with diabetic polyneuropathy; F51.01 Primary insomnia; I27.82 Chronic pulmonary embolism; J30.9 Allergic rhinitis, unspecified; E78.2 Mixed hyperlipidemia; G43.009 Migraine without aura, not intractable, without status migrainosus; K21.9 Gastro-esophageal reflux disease without esophagitis; Z79.899 Other long term (current) drug therapy; Z88.8 Allergy status to other drugs, medicaments and biological substances

== ENCOUNTER → 2019-02-03 | Outpatient (CLI) | payer MEDICARE | END | disposition home or self-care (01) | LOC: RESCLI 02:01 | DX: I13.0 Hypertensive heart and chronic kidney disease with heart failure and stage 1 through stage 4 chronic kidney disease, or unspecified chronic kidney disease (principal); E11.22 Type 2 diabetes mellitus with diabetic chronic kidney disease; I50.42 Chronic combined systolic (congestive) and diastolic (congestive) heart failure; N18.9 Chronic kidney disease, unspecified; R53.83 Other fatigue; F51.01 Primary insomnia; J30.9 Allergic rhinitis, unspecified; I27.82 Chronic pulmonary embolism; E55.9 Vitamin D deficiency, unspecified; G43.009 Migraine without aura, not intractable, without status migrainosus; J44.9 Chronic obstructive pulmonary disease, unspecified; E78.5 Hyperlipidemia, unspecified; Z79.899 Other long term (current) drug therapy ==

== ENCOUNTER → 2019-03-10 | Outpatient (CLI) | payer MEDICARE ==
[~2019-03-10] MED LIST changes: +LOSARTAN POTASS25 M1 PO
--- NOTE | ~2019-03-10 | ST ---
[place], [place] EXERCISE STRESS TEST REPORT NAME: SHELBI SUMNER [facility] #: [id number] UNIT #: [id number] ROOM: DOCTOR: LORI SIDHU BIRTHDATE: [birth year] DOS: 03/10/2019 PROTOCOL: Walking regadenoson, myocardial perfusion imaging. Baseline EKG showed normal sinus rhythm with a rate of 78 beats per minute, with normal axis, normal intervals with a PVC. Baseline blood pressure is 112/60 mmHg. Walking at 1.7 miles per hour, 0% grade, 0.4 mg of regadenoson was injected per protocol followed by radioisotope injection. The patient reported no symptoms. EKG showed no evidence of ischemia and no arrhythmias were noted. There were occasional PVCs. IMPRESSION: 1. No evidence of regadenoson-induced ischemia on stress EKG. 2. Nuclear images to be reported separately. Dr. LORI SIDHU MD CM:STRESS:EXERCISE STRESS TEST REPORT [id number] 18 LORI SIDHU
--- NOTE | 2019-03-10 10:15 | NUR ---
INFORMED SIGNED CONSENT OBTAINED FOR A LEXISCAN STRESS TEST WITH DR SIDHU. RESTING EKG NSR HR 81 BP 112/60. PULSE OX 97& LUNGS CLEAR. PT WALKED AT 1.7MPH AT A 0% GRADE, PT COMPLETED A ONE MINUTE OF A LEXISCAN PROTOCOL WITH PT RECEIVING LEXISCAN 0.4MG IV OVER 10 SECONDS. NO ARRHYTHMIAS OR ST CHANGES NOTED. PT HAD SOB WITH INJECTION. LAST RECOVERY HR OF 108 BP 102/64. PT IN STABLE CONDITION, AWAITING NUCLEAR IMAGES.
== END | disposition home or self-care (01) ==
LOC: CARD 00:14
DX: I11.9 Hypertensive heart disease without heart failure (principal); R53.81 Other malaise; R94.31 Abnormal electrocardiogram [ECG] [EKG]; E11.9 Type 2 diabetes mellitus without complications

== ENCOUNTER → 2019-03-14 | Outpatient (CLI) | payer MEDICARE | END | disposition home or self-care (01) | LOC: RESCLI 00:44 | DX: E78.2 Mixed hyperlipidemia (principal); I13.0 Hypertensive heart and chronic kidney disease with heart failure and stage 1 through stage 4 chronic kidney disease, or unspecified chronic kidney disease; E11.22 Type 2 diabetes mellitus with diabetic chronic kidney disease; I50.42 Chronic combined systolic (congestive) and diastolic (congestive) heart failure; N18.3 Chronic kidney disease, stage 3 (moderate); R53.83 Other fatigue; F51.01 Primary insomnia; J30.9 Allergic rhinitis, unspecified; E11.42 Type 2 diabetes mellitus with diabetic polyneuropathy; I27.82 Chronic pulmonary embolism; E55.9 Vitamin D deficiency, unspecified; G43.009 Migraine without aura, not intractable, without status migrainosus; J44.9 Chronic obstructive pulmonary disease, unspecified; Z79.899 Other long term (current) drug therapy ==

== ENCOUNTER → 2019-04-18 | Outpatient (CLI) | payer MEDICARE ==
[~2019-04-18] MED LIST changes: +CETIRIZINE10 MG PO; +DOXYCYCLINE MO100 M1 PO; +FUROSEMIDE20 M1 PO; +MUCINEX ER600 MG PO; +VITAMIN B-121000 MC2 PO; +VITAMIN D32000 UNI1 PO
== END | disposition home or self-care (01) ==
LOC: RESCLI 01:42
DX: I13.0 Hypertensive heart and chronic kidney disease with heart failure and stage 1 through stage 4 chronic kidney disease, or unspecified chronic kidney disease (principal); E11.22 Type 2 diabetes mellitus with diabetic chronic kidney disease; N18.9 Chronic kidney disease, unspecified; R53.83 Other fatigue; F51.01 Primary insomnia; J30.9 Allergic rhinitis, unspecified; E11.42 Type 2 diabetes mellitus with diabetic polyneuropathy; I50.42 Chronic combined systolic (congestive) and diastolic (congestive) heart failure; I27.82 Chronic pulmonary embolism; E55.9 Vitamin D deficiency, unspecified; G43.009 Migraine without aura, not intractable, without status migrainosus; K21.9 Gastro-esophageal reflux disease without esophagitis; Z79.899 Other long term (current) drug therapy

== ENCOUNTER 2019-04-23 13:47 | Inpatient (IN) | payer MEDICARE ==
[~2019-04-23] VITALS: Ht 160 cm; Wt 56.8 kg
[~2019-04-23 13:47] MED LIST changes: -CETIRIZINE10 MG PO; -DOXYCYCLINE MO100 M1 PO; -FUROSEMIDE20 M1 PO; -MUCINEX ER600 MG PO; -VITAMIN B-121000 MC2 PO; -VITAMIN D32000 UNI1 PO
[2019-04-23 13:53] VITALS: BP 114/52
[2019-04-23 14:34] VITALS: BP 127/55
--- NOTE | 2019-04-23 14:34 | NUR ---
PATIENT DENIES ANY WOUNDS AT THIS TIME ALSO FAMILY. A&OX4.
--- NOTE | 2019-04-23 14:35 | NUR ---
PATIENT FAMILY STAES PATIENT ALSO WAS FEELING SOB THIS MORNING.
--- NOTE | 2019-04-23 14:36 | NUR ---
PATIENT ALSO HAD A FALL ABOUT 4-6 TIMES IN ONE DAY, YESTERDAY.
[2019-04-23 14:48] LABS: BASO # 0.1 10*3/uL (0.0-0.1); BASO % 0.4 % (0.0-1.0); EOS % 0.2 % (1.0-4.0); HEMATOCRIT 34.7 % (37.0-47.0); HEMOGLOBIN 11.3 g/dl (12.0-16.0); LYMPH # 0.6 10*3/uL (1.3-4.4); LYMPH % 5.2 % (27.0-41.0); MEAN CELL VOLUME 100.6 fl (81.0-99.0); MEAN CORPUSCULAR HGB 32.8 pg (27.0-31.0); MEAN CORPUSCULAR HGB CONC 32.6 g/dl (33.0-37.0); MEAN PLATELET VOLUME 9.7 fl (9.6-12.3); MONO # 1.4 10*3/uL (0.1-1.0); MONO % 11.8 % (3.0-9.0); NEUT # 9.7 10*3/uL (2.3-7.9); NEUT % 81.9 % (47.0-73.0); PLATELET COUNT AUTOMATED 249 10*3/uL (130-400); RED BLOOD COUNT 3.45 10*6/uL (4.10-5.10); RED CELL DISTRI WIDTH 13.5 % (0-14.5); WHITE BLOOD COUNT 11.8 10*3/uL (4.8-10.8)
[2019-04-23 14:59] LABS: ACT PARTIAL THROMBO TIME 34.9 SECONDS (20.0-32.1); INTERNATIONAL NORM RATIO 1.1 (2.0-3.5)
[2019-04-23 15:10] LABS: ALKALINE PHOSPHATASE 52 U/L (45-117); BUN 16 mg/dl (7-24); CHLORIDE 102 mmol/L (98-107); CREATININE 1.36 mg/dL (0.55-1.02); POTASSIUM 4.2 mmol/L (3.5-5.1); SGOT/AST 20 IU/L (3-35); SGPT/ALT 17 U/L (12-78); SODIUM 133 mmol/L (136-145); TOTAL PROTEIN 7.6 gm/dL (6.4-8.2)
[2019-04-23 15:12] LABS: TROPONIN I < 0.015 ng/ml (<0.045)
[2019-04-23 16:09] LABS: BILIRUBIN NEGATIVE (NEGATIVE); BLOOD 2+ (NEGATIVE); CLARITY SL CLOUDY (CLEAR); COLOR YELLOW (YELLOW); GLUCOSE 1+ (NEGATIVE); KETONE TRACE (NEGATIVE); LEUKO ESTERASE 1+ (NEGATIVE); NITRITE NEGATIVE (NEGATIVE); PH 5.5 (5.0-9.0); SPECIFIC GRAVITY 1.025 (1.005-1.030); UROBILINOGEN 0.2 E.U./dl (0.2-1.0)
[2019-04-23 16:15] LABS: BACTERIA 1+; EPITHELIAL CELLS 16-20
[2019-04-23 16:16] LABS: WBC 21-30 wbc/hpf (0-5)
[2019-04-23 16:37] VITALS: BP 129/64
[2019-04-23 17:06] VITALS: BP 112/58
[2019-04-23 17:10] VITALS: BP 120/67
--- NOTE | 2019-04-23 17:10 | NUR ---
A 78, admitted to , under the services of MACY Wagner DO with a diagnosis of PULMONARY EDEMA, GENERALIZED WEAKNESS, FALL. Chief complaint is SOB AND FALLS. Patient arrived via ambulatory from ER. Monitor applied. Initial assessment completed. Vital signs taken and recorded. MACY WAGNER DO notified of admission to the unit. Orders received. See assessment for past medical history, medications and allergies. Patient and/or family oriented to unit. [address] visitation policy reviewed. Clothing/patient valuable form completed. SKIN INTACT WITH NO WOUNDS. FLU/PNEUMONIA/ZOSTAVAX CURRENT. BISI WHITESIDE
[2019-04-23] MEDS ORDERED: CETIRIZINE10 MG PO (17:52)
[2019-04-23] MEDS ORDERED: VITAMIN B-121000 MC2 PO (17:55)
--- NOTE | 2019-04-23 19:59 | NUR ---
PATIENT HAS A TEMPERATURE 102. SPOKE WITH DR. LAU AND INFORMED HIM I GAVE HER 650MG OF TYLENOL. STATED TO RECHECK TEMP IN 1 HOUR
[2019-04-23 20:00] VITALS: BP 118/72
--- NOTE | 2019-04-23 21:48 | NUR ---
SPOKE WITH DR. LAU REGARDING PATIENTS TEMPERATURE OF 100.7. SAID TO RECHECK AGAIN IN TWO HOURS.
[2019-04-24] VITALS: BP 111/67
--- NOTE | 2019-04-24 00:06 | NUR ---
NOTIFIED DR. LAU OF PATIENTS TEMPERATURE OF 99.0. NO NEW ORDERS AT THIS TIME.
--- NOTE | 2019-04-24 00:55 | NUR ---
Patient resting quietly with no c/o discomfort. Respirations easy and regular. Vital signs stable. No overt distress. HISSOM,JOSE
--- NOTE | 2019-04-24 01:36 | NUR ---
24 HR chart check completed.
--- NOTE | 2019-04-24 02:24 | NUR ---
PATIENT ATTEMPTED TO WALK BACK FROM BATHROOM BY HERSELF. PATIENT A LITTLE CONFUSED. PULLED HER IV OUT, BUT DIDN'T KNOW SHE HAD ONE IN. UNABLE TO FIND IV, BUT BLOOD WAS ON THE BED. PATIENT ALERT TO PERSON AND PLACE BUT DIDN'T REALIZE THAT IT WAS 0230 IN THE MORNING AND STATED ALL THE LIGHTS HAVE BEEN ON IN HER ROOM AND SHE HAS BEEN UNABLE TO SLEEP. PATIENTS LIGHTS WERE OFF WHEN FIRST WALKING IN TO PATIENT ROOM. PATIENT ASSISTED BACK TO BED. BED ALARM INTACT AND BED IN LOWEST POSITION. CALL LIGHT WITHIN REACH, WILL MONITOR
--- NOTE | 2019-04-24 02:46 | NUR ---
PATIENTS IV FOUND IN PATIENTS TOP DRAWER SHE ASKED IF WE WOULD BE ABLE TO REUSE IT, EXPLAINED TO HER THAT WE COULDN'T. ATTEMPTED TO START AN IV X2. PATIENT WISHES TO TRY AGAIN IN THE MORNING. CURRENTLY PATIENT HAS NO IV SITE
--- NOTE | 2019-04-24 02:49 | NUR ---
SPOKE WITH DR. LAU REGARDING PATIENT BEING CONFUSED AND PULLING IV OUT AND THAT WE ATTEMPTED TO RESTART IT TWICE. PATIENT IS NOT RECIEVING ANY IV MEDS AT THIS TIME. STATED TO LEAVE IT ALONE AT THIS TIME.
[2019-04-24 06:27] LABS: BASO % 0.3 % (0.0-1.0); EOS % 0.3 % (1.0-4.0); HEMATOCRIT 36.3 % (37.0-47.0); HEMOGLOBIN 11.7 g/dl (12.0-16.0); LYMPH # 0.9 10*3/uL (1.3-4.4); LYMPH % 6.8 % (27.0-41.0); MEAN CELL VOLUME 99.7 fl (81.0-99.0); MEAN CORPUSCULAR HGB 32.1 pg (27.0-31.0); MEAN CORPUSCULAR HGB CONC 32.2 g/dl (33.0-37.0); MEAN PLATELET VOLUME 9.8 fl (9.6-12.3); MONO # 1.4 10*3/uL (0.1-1.0); NEUT # 10.3 10*3/uL (2.3-7.9); PLATELET COUNT AUTOMATED 283 10*3/uL (130-400); RED BLOOD COUNT 3.64 10*6/uL (4.10-5.10); RED CELL DISTRI WIDTH 13.4 % (0-14.5); WHITE BLOOD COUNT 12.7 10*3/uL (4.8-10.8)
--- NOTE | 2019-04-24 06:47 | NUR ---
LEFT A VOICEMAIL OF DR. JOHN ANSWERING SERVICE REGADING CONSULT
--- NOTE | 2019-04-24 06:56 | NUR ---
SPOKE WITH THEA CRANE REGARDING NEW CONSULT.
[2019-04-24 06:59] LABS: ALBUMIN 3.1 gm/dl (3.1-4.5); CREATININE 1.67 mg/dL (0.55-1.02); PHOSPHOROUS 2.7 mg/dL (2.5-4.9); POTASSIUM 3.9 mmol/L (3.5-5.1); TOTAL PROTEIN 8.2 gm/dL (6.4-8.2)
[2019-04-24 07:07] LABS: ACT PARTIAL THROMBO TIME 35.2 SECONDS (20.0-32.1); INTERNATIONAL NORM RATIO 1.1 (2.0-3.5)
[2019-04-24 08:00] VITALS: BP 110/60
[2019-04-24 08:15] LABS: VITAMIN D, 25-HYDROXY 22.6 ng/mL (30-100)
--- NOTE | 2019-04-24 08:24 | NUR ---
Nursing screen and Occupational Therapy referral received. Thank you. Josy Stepehns OTR/L
--- NOTE | 2019-04-24 08:59 | NUR ---
PHYSICAL THERAPY Nursing screen received and chart reviewed. Physical therapy referral received. Thank you. Suzette Flanagan,PT,DPT.
--- NOTE | 2019-04-24 09:00 | NUR ---
case management visits with patient, patient was confused to time and place this am, case management/menu planner will contact patient's family regarding discharge plans
--- NOTE | 2019-04-24 10:20 | NUR ---
Occupational Therapy evaluation completed on 4 with full eval to follow. Precautions include fall risk, h/o falls, new ww use for impaired balance, impaired cognition, assist with ADLs and mobility, moderate complexity level 01159 via chart review, testing and evaluation. Recommend OT per POC and SNF to enable safe return home alone. If patient refuses then home with 24 hr supervision/assist and home health OT,PT SN. Thank you. Josy Stephens OTR/L
--- NOTE | 2019-04-24 10:20 | NUR ---
PHYSICAL THERAPY Physical therapy evaluation complete, 4E. Moderate complexity PT evaluation per chart review and evaluation (71948). PT to progress with bed mobility, transfers, gait, and LE strength per POC. Recommend SNF at discharge due to recent falls, weakness, and decreased endurance. Thank you. Suzette Flanagan,PT,DPT.
[2019-04-24 12:00] VITALS: BP 110/57
[2019-04-24 16:00] VITALS: BP 113/66
[2019-04-24 20:00] VITALS: BP 101/63
--- NOTE | 2019-04-24 21:35 | NUR ---
PATIENT STATED SHE DID NOT WANT AMBIEN AT THIS TIME. STATED SHE WULD CALL OUT WHEN SHE WANTED TO TAKE.
--- NOTE | 2019-04-24 21:57 | NUR ---
INFORMED THAT THERE IS NO SIGNED PAPERWORK FOR DNRCC. PATIENT IS AAOX4 AT THIS TIME, ASKED HER IN REGARDS TO WANT SHE WANTS, STATES "I DONT WANT ANYTHING DONR TO BRING ME BACK. IHAVE PAPERS DONE LONG AGO." STATED HE WILL BE UP LATER TO SIGN DNRCC.
[2019-04-25] VITALS: BP 89/72
--- NOTE | 2019-04-25 01:02 | NUR ---
PATIENT WATCHING TV IN BED. NO ACUTE DISTRESS NOTED. RESPIRATIONS EVEN AND UNLABORED. PATIENT A&O TO PERSON, PLACE, AND TIME. NO C/O PAIN. CALL LIGHT WITHIN REACH. BED ALARM ON FOR PATIENT SAFETY.
--- NOTE | 2019-04-25 01:18 | NUR ---
RN WENT IN TO RECHECK PATIENT'S BLOOD PRESSURE MANUALLY AND SAW PATIENT HAD HER IV IN HER HAND. PATIENT ASKED WHY THE WRAPPING WAS ON HER ARM. RN EXPLAINED THAT IT WAS ON TO KEEP HER FROM PULLING HER IV OUT. PATIENT STATED "WELL I PULLED IT OUT." PRN TYLENOL GIVEN FOR C/O HEADACHE AND 24 G IV STARTED IN PATIENT'S RIGHT FOREARM. IV SITE COVERED WITH KERLIX. PATIENT'S MANUAL BP 106/58.
[2019-04-25 01:35] VITALS: BP 106/58
--- NOTE | 2019-04-25 02:00 | NUR ---
PATIENT ASLEEP IN BED. PRN TYLENOL EFFECTIVE.
--- NOTE | 2019-04-25 02:06 | NUR ---
24 HR chart check completed.
--- NOTE | 2019-04-25 02:54 | NUR ---
WHEN ROUNDING ON PATIENT SHE STATED SHE FELT SHORT OF BREATH. SPO2 88% ON ROOM AIR. PATIENT PULLED UP IN BED, HOB INCREASED, AND 2 L NC APPLIED. SPO2 93% ON 2 L NC.
[2019-04-25 06:03] LABS: CREATININE 1.57 mg/dL (0.55-1.02); POTASSIUM 3.4 mmol/L (3.5-5.1)
[2019-04-25 06:18] LABS: HEMATOCRIT 33.2 % (37.0-47.0); HEMOGLOBIN 10.8 g/dl (12.0-16.0); MEAN CELL VOLUME 98.8 fl (81.0-99.0); MEAN CORPUSCULAR HGB 32.1 pg (27.0-31.0); MEAN CORPUSCULAR HGB CONC 32.5 g/dl (33.0-37.0); PLATELET COUNT AUTOMATED 297 10*3/uL (130-400); RED BLOOD COUNT 3.36 10*6/uL (4.10-5.10); RED CELL DISTRI WIDTH 13.6 % (0-14.5); WHITE BLOOD COUNT 16.9 10*3/uL (4.8-10.8)
[2019-04-25 06:42] LABS: PLASMA CELL 1 % (0-0); POLYCHROMASIA SLIGHT; TOTAL CELLS COUNTED 100 #CELLS
[2019-04-25 06:43] LABS: PLATELET SUFFICIENCY NORMAL (NORMAL)
[2019-04-25 08:00] VITALS: BP 100/62
--- NOTE | 2019-04-25 09:00 | NUR ---
PATIENT AMBULATED TO BATHROOM AT THIS TIEM WITH ASSIST. NASAL CANNULA REMOVED AND PATIENT'S O2 SAT UP TO 94% ROOM AIR. ENCOURAGED TO COUGH & DEEP BREATHE.
--- NOTE | 2019-04-25 09:00 | NUR ---
case management visits with patient, patient more alert this am but somewhat remains confused, patient's daughter will be visiting today, case management/account planner will visit with daughter to discuss a discharge plan
--- NOTE | 2019-04-25 09:11 | NUR ---
OT NOTE Pt was seen this A.M. 1:1 for 25 minute OT session. Upon arrival pt was supine in bed. Pt identified by name and and had no complaints at this time. Pt presented to therapy with continuous 2.5L-O2 via NC which she remained on throughout the entire session. Pt transferred supine to sit EOB with Blu for assist with UB. While sitting EOB pt donned B socks with CGA for safety due to having LOB to the R while seated. Sit to stand completed from bed level with Blu and use of w/w for UE support. Functional mobility then completed into the bathroom with Blu due to poor walker safety and navigation. Educated pt throughout for walker safety and pt had poor carry over throughout. Pt transferred on/off standard commode with Blu and use of grab bar for UE support. Clothing management completed with CGA and toilet hygiene completed with SBA while seated. Pt then stood sink side while washing her hands with CGA, pt had two LOB backwards that required Blu to correct. Functional mobility then completed back to the recliner where she was left sitting upright with body alarm activated for safety, call light in hand, and tray table in place. Continue with rec D/C plan to SNF. WINSTON Schneider/Arsalan
--- NOTE | 2019-04-25 09:12 | NUR ---
PHYSICAL THERAPY Patient presented to therapy in supine with head of bed elevated and bed alarm activated. Patient was identified by name and on wristband. Patient gives informed consent for treatment. Patient is on 2 liters of spO2 VIA NASAL CANULA. Patient transferred supine to sitting at EOB with SBA. Patient sat on EOB unassisted. Patient sit to stand from EOB with CGA X 1 with verbal cues for pushing off of bed with hands. Patient ambulated with Wh Walker and CGA X 2 for 35' x 1 to chair in hallway. Patient was somewhat unsteady and had 1 LOB to the rear requiring MIN A X 1 to correct and to prevent fall. Patient sat in low chair with CGA X 1. Patient performed TUG TEST from low chair in 1 minute and 1 second total time. Patient required MIN A X 1 out of low chair. Patient then ambulated back to bedside chair with CGA X 1. Patient was left in bedside chair with Chair alarm tested and attached to patient, call light within reach, and LEs in low position. Patient was 1:1 with this BREAKER MACHINE TENDER for 19 minutes total. SAMMY DANG BREAKER MACHINE TENDER
[2019-04-25 12:00] VITALS: BP 106/64
--- NOTE | 2019-04-25 12:41 | NUR ---
NOTIFIED OF NEW CONSULT.
--- NOTE | 2019-04-25 14:49 | NUR ---
SPEECH PATHOLOGY Modified barium swallow completed to rule out aspiration. Patient was admitted from home with increased weakness and frequent falls. Medical history includes pulmonary edema, TIA, CVA, migraines, DM, HTN, CHF, UTI. CT of the chest revealed infiltrates in both upper and lower lobes which may represent pneumonia. She is ordered a regular diet and thin liquids. For today's assessment she was alert but with significant generalized weakness. Oral motor exam revealed natural teeth. Oral movements were slow and weak but ROM and coordination were adequate. She was assessed with puree, solid and thin liquid taken by cup and straw. Oral and pharyngeal swallowing skills were WNL with all consistencies. There was no penetration or aspiration and no pharyngeal residue. Recommend patient remain on present diet. Recommend she choose softer, moister foods which are easier to swallow due to her generalized weakness. Recommend upright positioning, small bites and sips and alternating consistencies to ensure safety as her weakness places her at risk for aspiration. Short term therapy is recommended to ensure safety of swallow through education and adherence to safety precautions. Results and dinesh. were shared with patient and her nurse and they verbalized understanding. Dictated report to follow. Thank you for this referral. BENJAMIN MANLEY MS [facility]-AIR HAMMER OPERATOR
[2019-04-25 16:00] VITALS: BP 112/45
[2019-04-25 20:00] VITALS: BP 108/54
[2019-04-26] VITALS: BP 102/40
[2019-04-26 06:33] LABS: HEMATOCRIT 30.9 % (37.0-47.0); HEMOGLOBIN 9.8 g/dl (12.0-16.0); MEAN CELL VOLUME 100.7 fl (81.0-99.0); MEAN CORPUSCULAR HGB 31.9 pg (27.0-31.0); MEAN CORPUSCULAR HGB CONC 31.7 g/dl (33.0-37.0); MEAN PLATELET VOLUME 9.7 fl (9.6-12.3); PLATELET COUNT AUTOMATED 313 10*3/uL (130-400); RED BLOOD COUNT 3.07 10*6/uL (4.10-5.10); RED CELL DISTRI WIDTH 13.7 % (0-14.5); WHITE BLOOD COUNT 18.7 10*3/uL (4.8-10.8)
[2019-04-26 06:41] LABS: CREATININE 1.2 mg/dL (0.55-1.02)
[2019-04-26 07:00] LABS: TOTAL CELLS COUNTED 100 #CELLS
[2019-04-26 07:01] LABS: PLATELET SUFFICIENCY NORMAL (NORMAL); TOXIC GRANULATION MODERATE
[2019-04-26 08:00] VITALS: BP 108/56
--- NOTE | 2019-04-26 08:00 | NUR ---
DR HARE CALLED AND ASKED FOR THIS NURSE TO CALL AND SPEAK WITH THE DAUGHTER RE: PT NEEDING A BRONCHOSCOPY. DAUGHTER TO BE CALLED.
--- NOTE | 2019-04-26 09:00 | NUR ---
case mangaement visits with patient, patient more alert and oriented this am, daughter present, discussed with them a discharge plan including a short term [facility] and both declined, also discussed VNA and they agreed to [facility], case management will send referral to [facility] when patient is medically stable for discharge
--- NOTE | 2019-04-26 09:02 | NUR ---
CALLED AND SPOKE WITH NAHOMI PT DAUGHTER, EXPLAINED RATIONALE FOR BRONCHOSCOPY. SHE STATES SHE WILL COME IN AND SPEAK WITH HER MOTHER AND LEFT THIS NURSE KNOW LATER TODAY.
--- NOTE | 2019-04-26 09:37 | NUR ---
Contacted patients daughter adilene regarding snf placement upon discharge. Daughter stated she doesn't need snf, she's completely independent. she just put on a dinner libertarian [place] night prior to her admission here, she drives, does her own shopping, laundry and cleaning. She asked about home health or out patient therapy. She also asked about getting her a walking cane. She said she will be in to discuss with CM in about 1/2 hour.
--- NOTE | 2019-04-26 11:30 | NUR ---
PHYSICAL THERAPY Patient seen this am 1:1 for therapy visit and was sitting up in bedside chair upon therapist arrival. Patient identified by name / and was joined by her daughter who was present for entire therapy session. Patient transfers sit to stand, CGA, voicing no c/o's pain and ambulates with use of wh walker, 60'x 1, CGA, demonstrating slow, cautious gait pattern. Patient needed v/c to improve safe walker navigation especially during all turns. Patient returned to bedside chair with increased fatigue and remained with call light, tray table, telephone and body alarm. Will continue per POC as tolerated, total treatment time 14 minutes. Jw Sapp, CITY DIRECTOR
--- NOTE | 2019-04-26 11:50 | NUR ---
OT NOTE Pt was seen this A.M. 1:1 for 20 minute OT session. Upon arrival pt was sitting upright in the recliner. Pt identified by name and and had no complaints at this time other than feeling fatigued. Pt completed sit to stand from chair level with Blu and use of w/w for UE support. Functional mobility completed to the bathroom with CGA and occasional Blu for walker safety and navigation. Pt transferred on to standard commode with CGA and off with Blu. Pt then stood sink side while washing her hands and completing hair care with CGA, pt had one LOB backwards that occured while reaching overhead that was corrected with Blu. Functional mobility then completed back to the recliner where she was left sitting upright with call light in hand, tray table in place, and body alarm activated for safety. Continue with rec D/C plan to SNF. WINSTON Schneider/Araslan
--- NOTE | 2019-04-26 11:55 | NUR ---
DAUGHTER IN TO SEE PT. DISCUSSED WITH HER BRONCHOSCOPY. THEY HAVE DECIDED AGAINIST IT. DR HARE CALLED AND NOTIFIED.
[2019-04-26 12:00] VITALS: BP 126/86
--- NOTE | 2019-04-26 13:06 | NUR ---
SPEECH PATHOLOGY Patient was seen for treatment this pm. MBS was completed yesterday with short term follow up recommended to ensure adherence to safe swallow precautions. Patient was noted to be stronger overall today when compared to yesterday's encounter. She was not able to recall recommendations provided following yesterday's MBS. Reeducation was provided, including precautions such as upright positioning, small bites/sips and alternating consistencies. She was observed during lunchtime meal with solid foods and thin liquid. Patient displayed no overt difficulty with meal. Good use of safe swallow precautions was displayed. Patient admitted that her appetite has not been too good but stated that she is trying to eat more. As she demonstrates safe tolerance for regular diet and uses safety precautions independently, discharge from dysphagia therapy is recommended at this time. Thank you for this referral. It has been a pleasure taking part in this patient's care. BENJAMIN MANLEY MSCCC-UNDERWRITING CLERKS SUPERVISOR
--- NOTE | 2019-04-26 14:45 | NUR ---
patient was evaluated for home oxygen. patient was at rest room air -95% blood pressure- 126/86, heart rate 101, respiratory rate 22. during the ambulation the patient was doing fine and her spo2 styaed to 92-94%. does not qualify for home oxygen.
[2019-04-26 16:00] VITALS: BP 110/57
--- NOTE | 2019-04-26 19:17 | NUR ---
24 HR CHART CHECK COMPLETE.
[2019-04-26 20:00] VITALS: BP 100/58
[2019-04-27] VITALS: BP 111/58
--- NOTE | 2019-04-27 00:35 | NUR ---
PT AWAKE AND SETTING OFF BED ALARM. SHE IS VERY CONFUSED STATING THAT SHE IS MISSING A BABY. ATTEMPTS MADE TO REORIENT PATIENT UNSUCCESSFUL. PT REPOSITIONED IN BED FOR COMFORT. BED ALARM ON. WILL MONITOR CLOSELY.
[2019-04-27 07:04] LABS: HEMATOCRIT 33.1 % (37.0-47.0); HEMOGLOBIN 10.7 g/dl (12.0-16.0); MEAN CELL VOLUME 97.9 fl (81.0-99.0); MEAN CORPUSCULAR HGB 31.7 pg (27.0-31.0); MEAN CORPUSCULAR HGB CONC 32.3 g/dl (33.0-37.0); MEAN PLATELET VOLUME 9.7 fl (9.6-12.3); RED BLOOD COUNT 3.38 10*6/uL (4.10-5.10); RED CELL DISTRI WIDTH 13.7 % (0-14.5); WHITE BLOOD COUNT 17.7 10*3/uL (4.8-10.8)
[2019-04-27 07:07] LABS: PLATELET COUNT AUTOMATED 408 10*3/uL (130-400)
[2019-04-27 07:12] LABS: ALBUMIN 2.7 gm/dl (3.1-4.5); CREATININE 1.26 mg/dL (0.55-1.02); POTASSIUM 3.7 mmol/L (3.5-5.1); TOTAL PROTEIN 7.9 gm/dL (6.4-8.2)
[2019-04-27 07:37] LABS: PLATELET SUFFICIENCY HIGH (NORMAL); POLYCHROMASIA SLIGHT; TOTAL CELLS COUNTED 100 #CELLS
[2019-04-27 07:39] LABS: ROULEAUX MODERATE
[2019-04-27 08:00] VITALS: BP 120/70; BP 142/88
--- NOTE | 2019-04-27 08:16 | NUR ---
OT NOTE Pt was seen this A.M. 1:1 for 16 minute OT session. Upon arrival pt was supine in bed. Pt identified by name and and had no complaints at this time. Pt transferred supine to sit EOB with SBA. While sitting EOB pt donned B socks with SBA. Sit to stand completed from bed level with CGA and use of w/w for UE support. Functional mobility was then completed into the bathroom with CGA and use of w/w. There she transferred on/off standard commode with CGA and use of grab bar for UE support. Clothing management completed with CGA and toilet hygiene completed with supervision while seated. Pt then stood sink side while washing her hands with CGA. Then challenged pt's static standing tolerance needed for increased I in self care tasks and functional transfers, pt was able to tolerate aprox 4 minutes at a time before sitting due to fatigue. Pt was left sitting upright in the recliner with call light in hand, tray table in place, and body alarm activated for safety. Continue with rec D/C plan to SNF. ALINE Schneider
--- NOTE | 2019-04-27 08:30 | NUR ---
PHYSICAL THERAPY Patient seen this am 1:1 for therapy visit and supine in bed upon therapist arrival. Patient identified by name / and reports no new c/o's at this time. Patient transfers supine to sit EOB CGA x 1 and then sit to stand CGA, ambulating with use of wh walker, CGA, 15'x 1 to bathroom. Patient also ambulated addtional 50'x 1, demonstrating improved dorian, but needed v/c to correct "slouched" upright posture. Patient also presented with mild confusion this session and returnd to bedside chair following gait ex. Patient remained in chair with call light, tray table and body alarm. Will continue per POC as tolerated, total treatment time 16 minutes. Jw Sapp, COAT OPERATOR INSULATOR
--- NOTE | 2019-04-27 09:00 | NUR ---
case management visits with patient, patient is alert and oriented, she states she will return home when medically stable and will have [facility]. case management will notify [facility] when she is discharged
--- NOTE | 2019-04-27 10:37 | NUR ---
Dr. Olivera notified of chest x-ray results.
--- NOTE | 2019-04-27 11:43 | NUR ---
Medicated with norco per prn order for complaints of left sided rib pain.
[2019-04-27 12:00] VITALS: BP 112/60
--- NOTE | 2019-04-27 12:45 | NUR ---
States that norco was effective for pain.
--- NOTE | 2019-04-27 13:10 | NUR ---
Offered to assist pt up out of bed to sit in chair for awhile. Pt declines, states she is not comfortable in that chair.
--- NOTE | 2019-04-27 14:08 | NUR ---
Pt moved from 422 to 419. Blinds broke in room 422.
[2019-04-27 16:00] VITALS: BP 100/50
[2019-04-27 20:00] VITALS: BP 118/77
[2019-04-28] VITALS: BP 108/61
[2019-04-28 06:41] LABS: CREATININE 1.19 mg/dL (0.55-1.02); PHOSPHOROUS 3.7 mg/dL (2.5-4.9)
[2019-04-28 07:16] LABS: HEMOGLOBIN 11.3 g/dl (12.0-16.0); MEAN CORPUSCULAR HGB 32.3 pg (27.0-31.0); MEAN CORPUSCULAR HGB CONC 31.4 g/dl (33.0-37.0); MEAN PLATELET VOLUME 9.8 fl (9.6-12.3); PLATELET COUNT AUTOMATED 428 10*3/uL (130-400); WHITE BLOOD COUNT 19.5 10*3/uL (4.8-10.8)
[2019-04-28 07:27] LABS: MEAN CELL VOLUME 102.9 fl (81.0-99.0)
[2019-04-28 07:55] VITALS: BP 92/48
[2019-04-28 07:57] LABS: PLATELET SUFFICIENCY HIGH (NORMAL); ROULEAUX MODERATE; TOTAL CELLS COUNTED 100 #CELLS
--- NOTE | 2019-04-28 08:17 | NUR ---
PHYSICAL THERAPY PT SUPINE IN BED WITH BED ALARM ON UPON ARRIVAL WITH A.M. PT IDENTIFIED BY NAME AND . PT AGREED TO ALL PHYSICAL THERAPY THIS A.M. PT PERFORMED BED MOBILITY WITH SBA AND VC'S FOR SAFETY. PT PERFORMED STS FROM EOB WITH SBA/CGA TO FWW WITH VC'S FOR SAFETY. PT GAIT TRAINED 10FT X1 WITH CGA AND FWW WITH VC'S FOR POSTURE, SAFETY AND LONGER STEP LENGTH. PT HAS SHORT STEP LENGTH WITH HEEL CLOSE. PT PERFORMED STS TO CHAIR WITH VC'S FOR TECHNIQUE AND SAFETY. PT SITTING IN CHAIR WITH LE RECLINED WITH BODY ALARM ON, CALL LIGHT AND PHONE IN HAND. PT SEEN 1:1 FOR 14MINS. HARMONY LAWRENCE PTA
--- NOTE | 2019-04-28 08:45 | NUR ---
OT NOTE Pt was seen this A.M. 1:1 for 15 minute OT session. Upon arrival pt was supine in bed. Pt identified by name and and had no complaints at this time. Pt transferred supine to sit EOB with SBA. While sitting EOB pt donned pants and B socks with SBA. Sit to stand completed from bed level with CGA and use of w/w for UE support. Functional mobility was then completed around the room with CGA and use of w/w. Challenged pt's dynamic standing tolerance needed for increased I in self care tasks and functional transfers and pt was able to tolerate aprox 5 minutes before sitting due to fatigue. Pt was left sitting upright in the recliner with call light in hand, tray table in place, and body alarm activated for safety. Continue with rec D/C plan to SNF. ALINE Schneider
--- NOTE | 2019-04-28 09:00 | NUR ---
case management visits with patient, she states she will return home and have [facility] when medically stable, patient continues to receive iv antibiotics, case management will follow
[2019-04-28 11:42] VITALS: BP 116/58
--- NOTE | 2019-04-28 12:12 | NUR ---
Pt up out of bed sitting up in chair. Eating lunch. No distress noted. Oral doxycycline given to pt at this time and new order explained.
[2019-04-28 16:00] VITALS: BP 107/56
--- NOTE | 2019-04-28 16:02 | NUR ---
PHYSICAL THERAPY CO-SIGN I approve of the Phyical Therapy notes written above. IBAN TOVAR
--- NOTE | 2019-04-28 18:10 | NUR ---
Assisted pt to bathroom and then to chair to eat her soup.
[2019-04-28 20:00] VITALS: BP 108/47
--- NOTE | 2019-04-28 22:30 | NUR ---
RESTORIL PROVIDED PER PT REQUEST. BED IN LOWEST LOCKED POS, CALL LIGHT IN REACH, BED ALARM MAINTAINED.
[2019-04-29] VITALS: BP 102/61
--- NOTE | 2019-04-29 04:16 | NUR ---
NORCO PROVIDED FOR C/O PAIN TO BLE LEGS. DULCOLAX GIVEN PER PT REQUEST FOR C/O CONSTIPATION. WILL MONITOR.
[2019-04-29 04:20] VITALS: BP 102/60
--- NOTE | 2019-04-29 06:19 | NUR ---
PATIENT STATES HER LEG PAIN IS BETTER. NORCO EFFECTIVE FOR PAIN.
[2019-04-29 07:14] LABS: HEMATOCRIT 31.7 % (37.0-47.0); HEMOGLOBIN 10.2 g/dl (12.0-16.0); MEAN CELL VOLUME 101.3 fl (81.0-99.0); MEAN CORPUSCULAR HGB 32.6 pg (27.0-31.0); MEAN CORPUSCULAR HGB CONC 32.2 g/dl (33.0-37.0); MEAN PLATELET VOLUME 9.5 fl (9.6-12.3); PLATELET COUNT AUTOMATED 413 10*3/uL (130-400); RED BLOOD COUNT 3.13 10*6/uL (4.10-5.10); RED CELL DISTRI WIDTH 13.8 % (0-14.5); WHITE BLOOD COUNT 15.1 10*3/uL (4.8-10.8)
[2019-04-29 07:29] LABS: CREATININE 1.1 mg/dL (0.55-1.02); POTASSIUM 4.1 mmol/L (3.5-5.1)
[2019-04-29 07:40] LABS: BASOPHILS 1 % (0-1); PLASMA CELL 1 % (0-0); PLATELET SUFFICIENCY HIGH (NORMAL); TOTAL CELLS COUNTED 100 #CELLS
[2019-04-29 07:41] LABS: POLYCHROMASIA SLIGHT; ROULEAUX MODERATE; TOXIC GRANULATION SLIGHT
[2019-04-29 08:00] VITALS: BP 103/58
[2019-04-29 11:51] VITALS: BP 115/63
[2019-04-29 16:00] VITALS: BP 104/53
--- NOTE | 2019-04-29 19:00 | NUR ---
ASSUMED CARE FOR THIS PT AT THIS TIME. PT RESTING QUIETLY IN BED WATCHING TV. NO C/O VOICED AT PRESENT TIME. CALL LIGHT IN HAND.
[2019-04-29 20:00] VITALS: BP 118/70
--- NOTE | 2019-04-29 22:22 | NUR ---
PT MEDICATED W/RESTORIL PER REQUEST.
--- NOTE | 2019-04-29 22:46 | NUR ---
24 HR chart check completed.
[2019-04-30] VITALS: BP 105/64
--- NOTE | 2019-04-30 01:24 | NUR ---
24 HR chart check completed.
--- NOTE | 2019-04-30 03:10 | NUR ---
sleeping no distress noted.
--- NOTE | 2019-04-30 05:10 | NUR ---
c/o neck hurting and bilat. legs hurt. Devaughn hose removed. [place] given per order for pain rated "6" Pt. up to bedside commode voided and returned to bed.
--- NOTE | 2019-04-30 06:10 | NUR ---
PER PT. NORCO BECOMING EFFECTIVE FOR LEG AND NECK PAIN. RATED 4/10
[2019-04-30 07:38] LABS: HEMATOCRIT 33.6 % (37.0-47.0); HEMOGLOBIN 10.5 g/dl (12.0-16.0); MEAN CELL VOLUME 100.6 fl (81.0-99.0); MEAN CORPUSCULAR HGB 31.4 pg (27.0-31.0); MEAN CORPUSCULAR HGB CONC 31.3 g/dl (33.0-37.0); MEAN PLATELET VOLUME 9.2 fl (9.6-12.3); PLATELET COUNT AUTOMATED 449 10*3/uL (130-400); RED BLOOD COUNT 3.34 10*6/uL (4.10-5.10); RED CELL DISTRI WIDTH 13.8 % (0-14.5); WHITE BLOOD COUNT 11.6 10*3/uL (4.8-10.8)
--- NOTE | 2019-04-30 07:40 | NUR ---
MEDICATED WITH PRN PO DULCOLAX FOR CONSTIPATION.
--- NOTE | 2019-04-30 07:43 | NUR ---
MEDICATED WITH PRN PO DULCOLAX FOR CONSTIPATION.
[2019-04-30 08:00] VITALS: BP 101/58
[2019-04-30 08:15] LABS: CREATININE 1.17 mg/dL (0.55-1.02)
[2019-04-30 08:20] LABS: PLATELET SUFFICIENCY HIGH (NORMAL); POLYCHROMASIA SLIGHT; ROULEAUX SLIGHT; TOTAL CELLS COUNTED 100 #CELLS; TOXIC GRANULATION MODERATE
[2019-04-30 12:00] VITALS: BP 102/57
[2019-04-30] MEDS ORDERED: VITAMIN D32000 UNI1 PO (12:43)
[2019-04-30] MEDS ORDERED: DOXYCYCLINE MO100 M1 PO (12:43)
[2019-04-30] MEDS ORDERED: FUROSEMIDE20 M1 PO (12:43)
[2019-04-30] MEDS ORDERED: MUCINEX ER600 MG PO (12:43)
--- NOTE | 2019-04-30 13:33 | NUR ---
Discharge instructions reviewed with patient. Patient receptive and verbalizes understanding. Follow-up care arranged. Written instructions given to patient. PATIENT AWAITING RIDE HOME WITH DAUGHTER. LEANNE HAIRSTON
--- NOTE | 2019-04-30 13:56 | NUR ---
PATIENT DISCHARGED TO [facility] BY WHEELCHAIR, ACCOMPANIED BY [facility], FOR TRANSPORT HOME BY PRIVATE VEHICLE WITH HER NEPHEW.
--- NOTE | 2019-05-01 09:38 | NUR ---
SUPERCALENDER OPERATOR HELPER received call from Kay Ho, Patients daughter, in regards to the patient having HHC. SUPERCALENDER OPERATOR HELPER explained she was supposed to have [facility]. SUPERCALENDER OPERATOR HELPER explained would speak with Institutional Research Director Rose Marie, and would give her a call back. -PIO Vaca
--- NOTE | 2019-05-01 10:37 | NUR ---
RUG CLEANING SUPERVISOR notified [facility] that patient has been discharged. RUG CLEANING SUPERVISOR faxed discharge instructions to [facility]. RUG CLEANING SUPERVISOR reached back you to Patients julio Ho and informed her of this. -PIO Vaca
== END 2019-04-30 13:56 | disposition home health service (06) | DRG 871 ==
LOC: ED 13:47 → EDHOLD 16:31 → 4E 16:31
PROVIDERS: Emergency Medicine; Family Medicine; Hospitalist; Internal Medicine; Internal Medicine Critical Care Medicine; Student in an Organized Health Care Education/Training Program; ADMIT Internal Medicine
PROC: BD1BYZZ Fluoroscopy of Mouth/Oropharynx using Other Contrast (ICD-10-PCS; principal; 2019-04-25)
DX: A41.9 Sepsis, unspecified organism (principal); N17.0 Acute kidney failure with tubular necrosis; J96.01 Acute respiratory failure with hypoxia; J18.1 Lobar pneumonia, unspecified organism; I50.43 Acute on chronic combined systolic (congestive) and diastolic (congestive) heart failure; E87.1 Hypo-osmolality and hyponatremia; N39.0 Urinary tract infection, site not specified; J44.0 Chronic obstructive pulmonary disease with (acute) lower respiratory infection; E44.0 Moderate protein-calorie malnutrition; I13.0 Hypertensive heart and chronic kidney disease with heart failure and stage 1 through stage 4 chronic kidney disease, or unspecified chronic kidney disease; R65.20 Severe sepsis without septic shock; N18.3 Chronic kidney disease, stage 3 (moderate); E11.22 Type 2 diabetes mellitus with diabetic chronic kidney disease; Z66 Do not resuscitate; Z51.5 Encounter for palliative care; E87.6 Hypokalemia; D53.9 Nutritional anemia, unspecified; R31.9 Hematuria, unspecified; E11.65 Type 2 diabetes mellitus with hyperglycemia; J30.2 Other seasonal allergic rhinitis; E11.44 Type 2 diabetes mellitus with diabetic amyotrophy; E53.8 Deficiency of other specified B group vitamins; E55.9 Vitamin D deficiency, unspecified; J84.10 Pulmonary fibrosis, unspecified; E78.5 Hyperlipidemia, unspecified; Z53.29 Procedure and treatment not carried out because of patient's decision for other reasons; Z88.1 Allergy status to other antibiotic agents; Z88.8 Allergy status to other drugs, medicaments and biological substances; Z79.84 Long term (current) use of oral hypoglycemic drugs; Z86.73 Personal history of transient ischemic attack (TIA), and cerebral infarction without residual deficits; Z90.49 Acquired absence of other specified parts of digestive tract; Z83.3 Family history of diabetes mellitus; Z82.49 Family history of ischemic heart disease and other diseases of the circulatory system; Z86.718 Personal history of other venous thrombosis and embolism; Z79.01 Long term (current) use of anticoagulants

== ENCOUNTER → 2019-05-04 | Outpatient (CLI) | payer MEDICARE ==
[~2019-05-04] MED LIST changes: +CETIRIZINE10 MG PO; +DOXYCYCLINE MO100 M1 PO; +FUROSEMIDE20 M1 PO; +MUCINEX ER600 MG PO; +VITAMIN B-121000 MC2 PO; +VITAMIN D32000 UNI1 PO
[2019-05-04 11:38] LABS: ALBUMIN 2.8 gm/dl (3.1-4.5); CREATININE 1.52 mg/dL (0.55-1.02); POTASSIUM 4.6 mmol/L (3.5-5.1); TOTAL PROTEIN 8.8 gm/dL (6.4-8.2)
== END | disposition home or self-care (01) ==
LOC: RESCLI 01:09
PROVIDERS: Internal Medicine
DX: I12.9 Hypertensive chronic kidney disease with stage 1 through stage 4 chronic kidney disease, or unspecified chronic kidney disease (principal); E11.22 Type 2 diabetes mellitus with diabetic chronic kidney disease; N18.3 Chronic kidney disease, stage 3 (moderate); J30.9 Allergic rhinitis, unspecified; F51.01 Primary insomnia; R53.83 Other fatigue; E78.2 Mixed hyperlipidemia; E11.42 Type 2 diabetes mellitus with diabetic polyneuropathy; I27.82 Chronic pulmonary embolism; J44.9 Chronic obstructive pulmonary disease, unspecified; E55.9 Vitamin D deficiency, unspecified; E53.8 Deficiency of other specified B group vitamins; J18.9 Pneumonia, unspecified organism; J81.0 Acute pulmonary edema; R53.1 Weakness; Z79.899 Other long term (current) drug therapy

== ENCOUNTER → 2019-05-17 | Outpatient (CLI) | payer MEDICARE | END | disposition home or self-care (01) | LOC: RESCLI 00:43 | DX: J44.9 Chronic obstructive pulmonary disease, unspecified (principal); E78.2 Mixed hyperlipidemia; E53.8 Deficiency of other specified B group vitamins; E55.9 Vitamin D deficiency, unspecified; J18.9 Pneumonia, unspecified organism; I27.82 Chronic pulmonary embolism; E11.42 Type 2 diabetes mellitus with diabetic polyneuropathy; E11.22 Type 2 diabetes mellitus with diabetic chronic kidney disease; N18.9 Chronic kidney disease, unspecified; J30.9 Allergic rhinitis, unspecified; R53.83 Other fatigue; F51.01 Primary insomnia; Z79.899 Other long term (current) drug therapy ==

== ENCOUNTER → 2019-07-26 | Outpatient (CLI) | payer MEDICARE | END | disposition home or self-care (01) | LOC: RESCLI 00:34 | DX: E11.22 Type 2 diabetes mellitus with diabetic chronic kidney disease (principal); E11.42 Type 2 diabetes mellitus with diabetic polyneuropathy; N18.3 Chronic kidney disease, stage 3 (moderate); F51.01 Primary insomnia; E78.2 Mixed hyperlipidemia; E55.9 Vitamin D deficiency, unspecified; J30.9 Allergic rhinitis, unspecified; J44.9 Chronic obstructive pulmonary disease, unspecified; I27.82 Chronic pulmonary embolism; J84.10 Pulmonary fibrosis, unspecified; R53.83 Other fatigue; Z79.899 Other long term (current) drug therapy; Z90.89 Acquired absence of other organs; Z90.49 Acquired absence of other specified parts of digestive tract; Z88.8 Allergy status to other drugs, medicaments and biological substances ==

== ENCOUNTER 2019-11-21 12:46 | Inpatient (IN) | payer MEDICARE ==
[~2019-11-21] VITALS: Ht 160 cm; Wt 54.2 kg
[2019-11-21 13:21] LABS: BASO # 0.1 10*3/uL (0.0-0.1); BASO % 0.6 % (0.0-1.0); EOS # 0.3 10*3/uL (0.0-0.4); EOS % 2.9 % (1.0-4.0); HEMATOCRIT 40.4 % (37.0-47.0); LYMPH # 1.7 10*3/uL (1.3-4.4); LYMPH % 16.6 % (27.0-41.0); MEAN CELL VOLUME 99.8 fl (81.0-99.0); MEAN CORPUSCULAR HGB 32.3 pg (27.0-31.0); MEAN CORPUSCULAR HGB CONC 32.4 g/dl (33.0-37.0); MEAN PLATELET VOLUME 9.3 fl (9.6-12.3); MONO # 1.1 10*3/uL (0.1-1.0); MONO % 10.3 % (3.0-9.0); NEUT # 7.1 10*3/uL (2.3-7.9); NEUT % 69.1 % (47.0-73.0); PLATELET COUNT AUTOMATED 341 10*3/uL (130-400); RED BLOOD COUNT 4.05 10*6/uL (4.10-5.10); RED CELL DISTRI WIDTH 13.9 % (0-14.5); WHITE BLOOD COUNT 10.3 10*3/uL (4.8-10.8)
[2019-11-21 13:40] LABS: ALBUMIN 3.9 gm/dl (3.1-4.5); ALKALINE PHOSPHATASE 43 U/L (45-117); BUN 22 mg/dl (7-24); CHLORIDE 102 mmol/L (98-107); CREATININE 1.24 mg/dL (0.55-1.02); SGOT/AST 40 IU/L (3-35); SGPT/ALT 25 U/L (12-78); SODIUM 138 mmol/L (136-145)
[2019-11-21 13:41] LABS: TROPONIN I < 0.015 ng/ml (<0.045)
[2019-11-21 13:53] LABS: ACT PARTIAL THROMBO TIME 28.6 SECONDS (20.0-32.1); INTERNATIONAL NORM RATIO 1.2 (2.0-3.5)
[2019-11-21 16:54] VITALS: BP 116/54
[2019-11-21 19:22] VITALS: BP 131/58
--- NOTE | 2019-11-21 19:23 | NUR ---
PT DENIES ANY OPEN WOUNDS SORES OR CUTS AT THIS TIME.
--- NOTE | 2019-11-21 19:30 | NUR ---
PT ASSISTED ON AND OFF BEDSIDE TOILET.PT O2 DROPPED 86%RA WITH EXERTION.PT PLACED ON 2L O2 VIA NC.
[2019-11-21 20:00] VITALS: BP 121/52; BP 134/71
--- NOTE | 2019-11-21 20:00 | NUR ---
A 79, admitted to 4E, under the services of MACY Wagner DO with a diagnosis of ACUTE RESPIRATORY FAILURE WITH HYPOXIA, PNEUMONIA. Chief complaint is SHORTNESS OF BREATH. Patient arrived via ambulatory from ER. Monitor applied. Initial assessment completed. Vital signs taken and recorded. MACY WAGNER DO notified of admission to the unit. Orders received. See assessment for past medical history, medications and allergies. Patient and/or family oriented to unit. visitation policy reviewed. Clothing/patient valuable form completed. SHERRI WEBER
--- NOTE | 2019-11-21 20:33 | NUR ---
DR. ZHANG NOTIFIED PATIENT'S MED REQ IS UP TO DATE.
[2019-11-22] VITALS: BP 117/61; BP 125/59
--- NOTE | 2019-11-22 06:17 | NUR ---
DR. HARE NOTIFIFED OF CONSULT FOR PATIENT FOR PNEUMONIA.
[2019-11-22 06:19] LABS: BASO # 0.1 10*3/uL (0.0-0.1); BASO % 0.6 % (0.0-1.0); EOS # 0.2 10*3/uL (0.0-0.4); EOS % 1.4 % (1.0-4.0); HEMATOCRIT 34.8 % (37.0-47.0); LYMPH # 1.3 10*3/uL (1.3-4.4); LYMPH % 12.3 % (27.0-41.0); MEAN CELL VOLUME 99.4 fl (81.0-99.0); MEAN CORPUSCULAR HGB 32.3 pg (27.0-31.0); MEAN CORPUSCULAR HGB CONC 32.5 g/dl (33.0-37.0); MEAN PLATELET VOLUME 9.4 fl (9.6-12.3); MONO # 1.3 10*3/uL (0.1-1.0); MONO % 12.6 % (3.0-9.0); NEUT # 7.6 10*3/uL (2.3-7.9); NEUT % 72.5 % (47.0-73.0); PLATELET COUNT AUTOMATED 314 10*3/uL (130-400); RED CELL DISTRI WIDTH 13.9 % (0-14.5); WHITE BLOOD COUNT 10.4 10*3/uL (4.8-10.8)
[2019-11-22 06:46] LABS: ALBUMIN 3.1 gm/dl (3.1-4.5)
[2019-11-22 06:54] LABS: CREATININE 1.3 mg/dL (0.55-1.02); FREE T4 1.11 ng/dl (0.76-1.46); THYROID STIM HORMONE (HS) 2.51 uIU/ml (0.358-4.75); TOTAL PROTEIN 6.8 gm/dL (6.4-8.2)
--- NOTE | 2019-11-22 07:49 | NUR ---
PT RESTING IN BED/ NO DISTRESS NOTED. WILL MONITOR
[2019-11-22 08:00] VITALS: BP 100/43
--- NOTE | 2019-11-22 09:00 | NUR ---
Mark Up Designer in to talk to patient. Patient states lives at home with alone. There are none steps in the home. Physician: resident clinic [facility] Pharmacy: [facility] pharmacy Home health services: none at present Patient's level of ADLs: INDEPENDENT Patient has working utilities: all working DME: none Follow-up physician's appointment after d/c: will be made by hospitalist nurse director upon discharge Does patient want to access PORTAL?: no Discharge plan discussed with patient, she states she lives at home alone, she is independent in adls and ambulation, drives, she states she has family living near to her and helps her whenever she needs anything. she states she feels very weak at this time, discussed with her a short term retirement for rehab and 24 hour care prior to returning home, she declines, she stated she would return home when medically stable. discussed with her VNA and educated her on the services they provide. she stated she was familiar with home health, she had services from [facility] in the past and would like to use them again, case management will send [facility] an order to see patient when she is medically stable for discharge. YANELY CANNON
--- NOTE | 2019-11-22 09:45 | NUR ---
PHYSICAL THERAPY Eval received chart reviewed attempted to see pt in her room presently declining therapy at this time "just don't feel well" subjective information taken and pt agreeable to possible eval/activity in the PM. Discussed benefit of OOB, will follow in the afternoon. Rachelle Recio PT
--- NOTE | 2019-11-22 10:09 | NUR ---
SPEECH PATHOLOGY Nursing screen complete. Patient is dx with pneumonia. This dept. will be available for consult as needed. BENJAMIN MANLEY MSCCC-BIOMETRIC TECHNICIAN
--- NOTE | 2019-11-22 10:45 | NUR ---
Occupational Therapy evaluation completed on four with full evaluation to follow. Recommend occupational therapy per plan of care and SNF upon discharge. If refused, home with SN, OT, and PT with 01/02 supervision assist with a WW for home to maximize patient safety. Thank you for this referral. Kavya Lara OTR/L
--- NOTE | 2019-11-22 10:45 | NUR ---
PHYSICAL THERAPY Rina completed full report to follow pt would benefit from [facility] rehab/SNF pending progress with ambulation. Per pt she will go home agreeable to HH Pt on 2L 02 does not use at home HISTOTECHNICIAN x1 min assist w LOB vs FWW w cg-min x 1 Sats dropping to 90-91% w activity. Pt has multiple steps and lives alone. If goes home would recommend 24 hr care/assist FWW. Spoke w case management. Rachelle Recio PT
[2019-11-22 11:42] VITALS: BP 117/53
[2019-11-22 16:00] VITALS: BP 116/62
[2019-11-22 20:00] VITALS: BP 110/56
--- NOTE | 2019-11-22 21:11 | NUR ---
DR ZHANG AWARE NO ABX ORDERED FOR PT
--- NOTE | 2019-11-22 21:59 | NUR ---
PRN PO TYLENOL GIVEN PER REQUEST FOR C/O DISCOMFORT TO BACK AND SLIGHT HEADACHE. WILL MONITOR.
--- NOTE | 2019-11-22 23:58 | NUR ---
PATIENT SLEEPING; RESPS EASY AND REGULAR ON 2L NC. TYLENOL APPEARS EFFECTIVE FOR DISCOMFORT. BED IN LOW, LOCKED POS, CALL LIGHT IN REACH.
[2019-11-23 07:40] LABS: BASO # 0.1 10*3/uL (0.0-0.1); BASO % 0.6 % (0.0-1.0); EOS # 0.4 10*3/uL (0.0-0.4); EOS % 3.8 % (1.0-4.0); HEMATOCRIT 34.8 % (37.0-47.0); LYMPH # 1.2 10*3/uL (1.3-4.4); LYMPH % 11.9 % (27.0-41.0); MEAN CELL VOLUME 100.6 fl (81.0-99.0); MEAN CORPUSCULAR HGB 32.4 pg (27.0-31.0); MEAN CORPUSCULAR HGB CONC 32.2 g/dl (33.0-37.0); MEAN PLATELET VOLUME 8.9 fl (9.6-12.3); MONO % 9.5 % (3.0-9.0); NEUT # 7.5 10*3/uL (2.3-7.9); NEUT % 73.8 % (47.0-73.0); PLATELET COUNT AUTOMATED 315 10*3/uL (130-400); RED BLOOD COUNT 3.46 10*6/uL (4.10-5.10); RED CELL DISTRI WIDTH 14.4 % (0-14.5); WHITE BLOOD COUNT 10.1 10*3/uL (4.8-10.8)
--- NOTE | 2019-11-23 07:47 | NUR ---
pt resting in bed. no distress noted. will monitor
[2019-11-23 07:52] LABS: CREATININE 1.2 mg/dL (0.55-1.02); POTASSIUM 4.1 mmol/L (3.5-5.1)
[2019-11-23 08:00] VITALS: BP 110/50
--- NOTE | 2019-11-23 09:00 | NUR ---
case managmeent visits with patient, she states she is a possibly discharge for tomorrow, Wednesday. educated her that [facility] will see her when she is discharged to home, patient denies any other needs at this time
--- NOTE | 2019-11-23 09:05 | NUR ---
PT RESTING IN BED. NO DISTRESS NOTED. WILL MONITOR
--- NOTE | 2019-11-23 09:15 | NUR ---
HOME O2 ASSESSMENT: RESTING SPO2 83% ON ROOM AIR HR 112 BP 124/64 RESTING SPO2 86% ON 2L NC RESTING SPO2 93% ON 3L NC AMBULATING SPO2 90-92% ON 3L NC HR 118-124 RECOVERY SPO2 93% HR 108 BP 111/51 PT. REQUIRES 3L O2 CONTINUOUSLY AT REST AND DURING EXERTION TO KEEP SPO2 GREATER THAN OR EQUAL TO 88%. AND RN NOTIFIED.
--- NOTE | 2019-11-23 10:40 | NUR ---
PHYSICAL THERAPY Patient seen this am 1:1 for therapy visit and was supine in bed upon therapist arrival. Patient identified by name / and presented with continuos O2-3L via NC, recording resting SpO2 95%, HR 98 bpm. OT nurse practitioner physician assistant was also present for observation only this session as patient transfers supine to sit EOB with MIN/CGA. Pateint completed sit to stand transfer CGA and ambulated with use of wh walker, CGA, 15'x 1 to bathroom, then additional 25'x 1, demonstrating very slow dorian, decreased stride and POOR safety awareness with extended O2 hose. Patient needed repeated v/c's to improve walker safety / navigation around extended O2 hose to prevent risk of stepping on, tripping over or getting tangled up in hose as her plans are to return home with similar situation. Patient returned to bedside chair with mild fatigue, recording post gait SpO2 93%, HR 107 bpm and remained in chair with call light, tray table, telephone, body alarm for safety. Will continue per POC as tolerated, total treatment time 16 minutes. Jw Sapp, PRINT LINE OPERATOR
--- NOTE | 2019-11-23 11:00 | NUR ---
case management left a secure voicemail to Rolanda, claims coordinator for [facility], that patient is a possibly discharge for tomorrow, Wednesday, patient's information also faxed to [facility]
--- NOTE | 2019-11-23 11:05 | NUR ---
OT NOTE Pt was seen this A.M. 1:1 for 25 minute OT session. Upon arrival pt was supine in bed. Pt identified by name and and had complaints of generalized weakness and fatigue. Pt presented to therapy with continuous 3L-O2 via NC which she remained on throughout the entire session. Pt transferred supine to sit EOB with SBA and use of bed rails for UE support. While sitting EOB pt donned B socks with supervision. Pt was educated on O2 line management for increased I and enhanced safety, pt verbalized understanding. Sit to stand completed from bed level with CGA and use of w/w for UE support. FUnctional mobility was then completed to the bathroom with CGA and use of w/w with constant verbal and tactile prompts for safety awareness and safety with the O2 line. Pt transferred on/off standard commode with SBA and completed all clothing management and toilet hygiene with SBA. Pt then stood sink side while washing her hands with SBA. Functional mobility was then completed back to the recliner with CGA and use of w/w, again presenting with F- safety and O2 line management. Pt was left sitting upright in the recliner with call light in hand, tray table in place, and body alarm activated for safety. Continue with rec D/C plan to SNF. ALINE Schneider
--- NOTE | 2019-11-23 11:52 | NUR ---
PT REQUESTED AND GIVEN TYLENOL FOR HEADACHE PT RATES PAIN 12/19 WILL MONITOR
--- NOTE | 2019-11-23 11:54 | NUR ---
PT REQUESTED AND GIVEN TYLENOL FOR C/O HEADACHE WILL MONITOR
[2019-11-23 12:00] VITALS: BP 115/67
--- NOTE | 2019-11-23 12:37 | NUR ---
TYLENOL HELPED WILL MONITOR
[2019-11-23 16:00] VITALS: BP 104/51
--- NOTE | 2019-11-23 16:15 | NUR ---
Alert and oriented x3. Lungs diminished with coarse rales noted posterior bases. Abdomen soft normoactive bx4. Denies pain. BSG was 145. See assessment.
[2019-11-23 20:00] VITALS: BP 118/61
--- NOTE | 2019-11-23 20:25 | NUR ---
UP TO BATHROOM AND WASHED OFF AND RETURNED TO BED. PATIENT SOB. O2 3L NC IN USE. PT. C/O BACK/NECK PAIN. TYLENOL GIVEN PER ORDER FOR PAIN RATED "5-6". SEE MAR.
--- NOTE | 2019-11-23 21:24 | NUR ---
TYLENOL EFFECTIVE FOR PAIN PER PT. STATES "I'M NOT ACHEY"
[2019-11-23 23:10] VITALS: BP 100/48
--- NOTE | 2019-11-23 23:10 | NUR ---
PATIENT CALLED OUT AND SAID "I'M FEEL HOT AND I'M ALL SWEATY." SOB. C/O CONGESTION AND THROAT BEING DRY. RESPIRATORY THERAPIST HERE ALSO AND PULSE OX 87% ON 3L O2 VIA NC RESP RATE 38 BPM. AEROSAL TREATMENT GIVEN AND HUMIDIFICATION ADDED TO O2. VITAL SIGNS OBTAINED AND RECORDED. LUNG SOUNDS RALES AND DIMINISHED SAME EARLIER.
--- NOTE | 2019-11-23 23:20 | NUR ---
RECHECK PULSE OX 90-91% INCREASE O2 TO 4L VIA NC WITH HUMIDIFICATION IN USE. PATIENT STATING "MY THROAT ISN'T DRY". PATIENT APOLOGIZING FOR BEING A BOTHER. EXPLAINED TO PATIENT THIS IS WHY I'M HERE.
--- NOTE | 2019-11-23 23:40 | NUR ---
CALLED DR. LEÓN LEFT MESSAGE
--- NOTE | 2019-11-23 23:43 | NUR ---
DR. LEÓN CALLED BACK AND NOTIFIED OF PT. CONDITION. RECHECK VS IN ABOUT HOUR CALL WITH ANY WORSENING OF CONDITION.
[2019-11-24] VITALS (7 sets, daily range): BP systolic 97–112; BP diastolic 44–60
--- NOTE | 2019-11-24 00:20 | NUR ---
DR. LEÓN CAME TO FLOOR AND EXAMINED AND SPOKE WITH PATIENT. RESP. WHILE PT. SLEEPING 40 BPM PULSE OX 93% ON 4L O2 NC. WHEN DR. LEÓN AWAKEND PATIENT PATIENT WARM TO TOUCH. PT. STATED SHE FELT BETTER THAN EARLIER BUT WAS STILL FEELING SHE WAS WORKING TO BREATH MORE THAN NORMAL. PULSE OX DROPPED TO 88% WHEN SHE WAS TALKING. LUNG SOUNDS CONTINUES TO HAVE RALES. PATIENT DOES NOT WANT TO BE ON A BIPAP BUT AGREED TO NON-REBREATHER MASK.
--- NOTE | 2019-11-24 00:40 | NUR ---
X-RAY HERE ON FLOOR FOR CHEST X-RAY.
--- NOTE | 2019-11-24 00:48 | NUR ---
RESP HERE AND WORKING WITH PATIENT.
--- NOTE | 2019-11-24 01:15 | NUR ---
PATIENT SLEEPING. RESP. 30 BPM. MOUTH BREATHING. PULSE OX 96-98% 8L O2 HIGH FLOW CANNULA. HR 90-100'S.
--- NOTE | 2019-11-24 01:20 | NUR ---
CALLED AND SPOKE WITH DR. LEÓN NOTIFIED OF PT. CONDITION/VITAL SIGNS/PULSE OX/CHEST X-RAY RESULTS. NO NEW ORDERS. WILL CONTINUE TO MONITOR. NOTIFIED DR. LEÓN THAT RESPIRATORY WAS PALPATING RADIAL PULSE WITH PULSE OX AND PATIENT DID SHUBHAM AND THEN BACK UP TO 100'S.
--- NOTE | 2019-11-24 02:55 | NUR ---
AWAKEND. UP TO BATHROOM WITH ASSISTANCE OF WALKER AND 1 ASSIST AND RETURNED TO BED. SOB WITH EXCERTION AND PULSE OX ON RETURN TO BED WAS 85%. PATIENT WAS A LITTLE UNSTEADY WITH GAIT. HOB ELEVATED. ENCOURAGED DEEP BREATHING PATIENT MOUTH BREATHING. PUSLE OX UP TO 93% HR 100
--- NOTE | 2019-11-24 03:09 | NUR ---
PULSE OX 96% WITH 8L NC IN USE HEART RATED 98BPM
--- NOTE | 2019-11-24 03:40 | NUR ---
24 HR chart check completed.
--- NOTE | 2019-11-24 04:00 | NUR ---
PULSE OX 100% ON 8L. DECREASE O2 TO 7L PULSE OX MAINTAINING.
--- NOTE | 2019-11-24 04:45 | NUR ---
PULSE OX DECREASED TO 92% INCREASE O2 BACK TO 8L VIA HIGH FLOW. PULSE OX INCREASED TO 95%.
[2019-11-24 05:58] LABS: BASO # 0.1 10*3/uL (0.0-0.1); BASO % 0.5 % (0.0-1.0); EOS # 0.2 10*3/uL (0.0-0.4); EOS % 2.1 % (1.0-4.0); HEMATOCRIT 32.8 % (37.0-47.0); LYMPH # 1.3 10*3/uL (1.3-4.4); LYMPH % 11.1 % (27.0-41.0); MEAN CELL VOLUME 100.6 fl (81.0-99.0); MEAN CORPUSCULAR HGB 32.2 pg (27.0-31.0); MEAN PLATELET VOLUME 9.3 fl (9.6-12.3); MONO # 1.2 10*3/uL (0.1-1.0); MONO % 10.2 % (3.0-9.0); NEUT # 8.7 10*3/uL (2.3-7.9); NEUT % 75.6 % (47.0-73.0); PLATELET COUNT AUTOMATED 301 10*3/uL (130-400); RED BLOOD COUNT 3.26 10*6/uL (4.10-5.10); RED CELL DISTRI WIDTH 14.2 % (0-14.5); WHITE BLOOD COUNT 11.5 10*3/uL (4.8-10.8)
--- NOTE | 2019-11-24 06:00 | NUR ---
PATIENT AWAKENS EASILY. RESP STILL SLIGHT TACHY WITH HEART RATE 100'S. O2 8L HIGH FLOW CONTINUES WITH PULSE OX THAT FLUCTUATES 93-98%.
[2019-11-24 06:09] LABS: ALBUMIN 2.7 gm/dl (3.1-4.5); CREATININE 1.2 mg/dL (0.55-1.02); POTASSIUM 4.1 mmol/L (3.5-5.1); TOTAL PROTEIN 6.7 gm/dL (6.4-8.2)
[2019-11-24 07:44] LABS: ABG BASE EXCESS -0.8 mmol/L (-2.0-2.0); ARTERIAL BLOOD GAS PH 7.429 (7.35-7.45)
--- NOTE | 2019-11-24 08:13 | NUR ---
DR. Lucero in and examined pt. Resident with Dr. Rangel today.
--- NOTE | 2019-11-24 08:50 | NUR ---
Continous pox from telemetry not working notified Jose. States he spoke with Paulina to obtain another one as he does not have any. Pox applied from mobile vital machine. Pox is 94% on high flow 9l
--- NOTE | 2019-11-24 09:00 | NUR ---
case management visits with patient, discussed with her physical therapy and doctors recommendation that she go to a short term correction for 5 days of therapy and 24 hour care. she became angry and stated she would not go to a facility, she was going home and her family would help her. she was still agreeable to [facility]. case management will notify [facility] when patient is medically stable for discharge
--- NOTE | 2019-11-24 09:22 | NUR ---
Dr Olivera in and examined pt. New telemetry box with new pox applied to pt for continous pox. pox 94-97% on 9l high flow o2 via nc.
--- NOTE | 2019-11-24 10:05 | NUR ---
Spoke with pt daughter Kay and updated on pt condition.
--- NOTE | 2019-11-24 11:19 | NUR ---
Transport here to take pt for CTA of chest.
--- NOTE | 2019-11-24 11:20 | NUR ---
PHYSICAL THERAPY Patient seen this am 1;1 for therapy visit and was supine in bed upon therapist arrival. Patient identified by name / , recording resting SpO2 93%, HR 105 bpm. OT salon shampoo assistant was present this morning for observation only as patient presented with continuos O2-8L via NC. Patient performed supine to sit EOB transfer, MIN A, recording SpO2 88%, HR 108 bpm, tolerating several minutes static EOB sit, SBA. Patient performed sit to stand transfer, APPLICATION DEVELOPER/MIN completing SPT to transport w/c to be taken downstairs for lung CT scan. Patient demonstrated unsteady step sequence during w/c transfer, recording SpO2 90%, HR 112 bpm. Patient fatigues very quickly and reports quick onset of muscle weakness during standing activities this session. Patient remained in w/c under hospital staff Supervison and will continue per POC as tolerated. Total treatment time 12 minutes. Jw Sapp, LICENSED SALES ASSISTANT
--- NOTE | 2019-11-24 11:25 | NUR ---
OT NOTE Pt was seen this A.M. 1:1 for 15 minute OT session. Upon arrival pt was supine in bed. Pt identified by name and and had complaints of feeling heavy chested and nasal congestion. Pt presented to therapy with continuous 8L-O2 via NC which she remained on throughout the entire session. Pt's resting SpO2 was 93% and heart rate 105 bpm. Pt transferred supine to sit EOB with Blu for assist with UB, throughout transfer pt's Spo2 dropped to 88% and heart rate 108 bpm. After aprox 10 seconds pt's Spo2 raised to 90% heart rate 90 bpm. While seated pt was educated on relaxation and breathing techniques due to mouth breathing. Sit to stand completed from bed level with CGA followed by standing pivot to the w/c for transport, throughout pt's Spo2 dropped to 90% and heart rate 112 bpm. Pt was left sitting upright in the w/c under transport supervision. Continue with rec D/C plan to SNF. ALINE Schneider
--- NOTE | 2019-11-24 11:42 | NUR ---
Pt returned from having CTA. Monitor applied.
--- NOTE | 2019-11-24 13:35 | NUR ---
Assisted up out of bed to urinate in bathroom and back to bed. Pt on continous pox and dropped to 74% with exertion on 9L high flow. Respiratory notified.
--- NOTE | 2019-11-24 13:38 | NUR ---
Repiratory here to address pt.
--- NOTE | 2019-11-24 13:46 | NUR ---
Respiratory states that pt was up to 10L via high flow. States pt has a treatment due in 1 hour and they will reassess.
--- NOTE | 2019-11-24 14:36 | NUR ---
Dr. Lucero up and spoke with pt, called and spoke with pt daughter Kay.
--- NOTE | 2019-11-24 15:09 | NUR ---
OCCUPATIONAL THERAPY CO-SIGN I approve of the Occupational Therapy notes written above. VON BOUDREAUX, OTR/L
--- NOTE | 2019-11-24 15:21 | NUR ---
PHYSICAL THERAPY CO-SIGN I approve of the Physical Therapy notes written above. Rachelle Recio PT
--- NOTE | 2019-11-24 18:18 | NUR ---
Medicated with tylenol per prn order for complaints of headache.
--- NOTE | 2019-11-24 18:51 | NUR ---
Pt resting with eyes closed. No signs of pain at this time. O2 remains intact via High Flow NC at 9L. Pox is 93%.
--- NOTE | 2019-11-24 19:06 | NUR ---
PULSE OX 85% ON 8L HIGH FLOW. PATIENT READJUSTED IN BED PULSE OX TO 91%. HR 109
--- NOTE | 2019-11-24 19:49 | NUR ---
[id number] PATIENT CALLED OUT AND STATED "I'M STARTING TO FEEL BAD AGAIN. COOL AND CLAMMY. COULD SOMEONE PLEASE CHECK ME." PATIENT IS COOL, CLAMMY. PATIENT SAID SHE JUST DIDN'T WANT TO BE LIKE SHE WAS EARLIER WHEN SHE WAS ALL SWEATY. RESPIRATORY HAD COME IN AND CHECKED PATIENT GAVE HER A BREATHING TREATMENT. LUNG SOUNDS RALES SCATTERED THROUGHOUT. O2 8L HIGH FLOW IN USE. RESP. 30BPM, HR TACHY, BP 104/44. TEMP 99.1 TYLENOL HAD BEEN GIVEN EARLIER AT 181 FOR HEADACHE WHICH PATIENT IS NOT COMPLAINING ABOUT THIS AT THIS TIME. BEDSIDE GLUCOSE CHECKED AT 1948 AND WAS 215. WILL CONTINUE TO MONITOR PATIENT.
--- NOTE | 2019-11-24 21:30 | NUR ---
UP TO BEDSIDE COMMODE PULSE OX REMAINED AROUND 94% AND PATIENT BACK IN BED. ALICJA CAMARA PLACED PT. WAS HAVING CRAMPING IN LEFT LEG WHICH IS CHRONIC.
[2019-11-24 21:41] LABS: CLARITY CLEAR (CLEAR); COLOR YELLOW (YELLOW); GLUCOSE NEGATIVE (NEGATIVE)
[2019-11-24 21:42] LABS: BILIRUBIN 1+ (NEGATIVE); BLOOD 2+ (NEGATIVE); KETONE NEGATIVE (NEGATIVE); LEUKO ESTERASE TRACE (NEGATIVE); NITRITE NEGATIVE (NEGATIVE); UROBILINOGEN 0.2 E.U./dl (0.2-1.0)
[2019-11-24 21:45] LABS: BACTERIA 1+
[2019-11-25] VITALS: BP 92/52
--- NOTE | 2019-11-25 00:05 | NUR ---
PATIENT SLEEPING AMBIEN EFFECTIVE. HR 94 BPM, RESP RATE 30-36 BPM, PATIENT MOUTH BREATHER PULSE OX 94% WITH O2 8L HIGH FLOW IN USE MANUAL BP OBTAINED 92/52. PATIENT AWOKE BRIEFLY FOR CHECK AND WENT BACK TO SLEEP.
--- NOTE | 2019-11-25 01:10 | NUR ---
PULSE OX TO 77% UPON ENTERING ROOM. PULSE OX WAS NOT COMPLETELY ON PATIENT FINGER AND NASAL CANNULA HAD SHIFTED OUT OF ONE NOSTRIL.PATIENT HAD SLIDE DOWN IN BED. PULSE OX AND O2 NC READJUSTED AND PATIEN PULLED UP IN BED. PULSE OX WENT TO 92%. WILL CONTINUE TO MONITOR.
--- NOTE | 2019-11-25 01:21 | NUR ---
PULSE OX AT THIS TIME IS 96% WITH 02 8L HIGH FLOW IN USE.
--- NOTE | 2019-11-25 02:30 | NUR ---
PULSE OX 95% HR 105.
--- NOTE | 2019-11-25 03:26 | NUR ---
AWAKE WANTED TO GO TO THE BATHROOM. PATIENT WEAK. ASSISTED TO BEDSIDE COMMODE WITH 1. PATIENT RETURNED TO BED PULSE OX 88% ENCOURAGED TO DEEP BREATHING. OCCAS. NON PROD/DRY COUGH NOTED. WILL CONT TO MONITOR
[2019-11-25 06:34] LABS: BASO # 0.1 10*3/uL (0.0-0.1); BASO % 0.5 % (0.0-1.0); EOS # 0.3 10*3/uL (0.0-0.4); EOS % 1.9 % (1.0-4.0); HEMATOCRIT 32.2 % (37.0-47.0); LYMPH # 0.6 10*3/uL (1.3-4.4); LYMPH % 4.2 % (27.0-41.0); MEAN CELL VOLUME 99.4 fl (81.0-99.0); MEAN CORPUSCULAR HGB 32.4 pg (27.0-31.0); MEAN CORPUSCULAR HGB CONC 32.6 g/dl (33.0-37.0); MEAN PLATELET VOLUME 9.5 fl (9.6-12.3); MONO % 7.1 % (3.0-9.0); NEUT # 12.5 10*3/uL (2.3-7.9); NEUT % 85.6 % (47.0-73.0); PLATELET COUNT AUTOMATED 321 10*3/uL (130-400); RED BLOOD COUNT 3.24 10*6/uL (4.10-5.10); WHITE BLOOD COUNT 14.6 10*3/uL (4.8-10.8)
[2019-11-25 06:59] LABS: ALBUMIN 2.7 gm/dl (3.1-4.5); CREATININE 1.27 mg/dL (0.55-1.02); POTASSIUM 4.2 mmol/L (3.5-5.1); TOTAL PROTEIN 7.1 gm/dL (6.4-8.2)
--- NOTE | 2019-11-25 07:00 | NUR ---
HEART RATE 101BPM, PULSE OX 955 ON HIGH FLOW O2. PT. UPSET THAT HER BLOOD SUGAR WAS 180 AND WHEN, IS IT GOING TO GET BETTER. EXPLAINED IT'S NOT HER FAULT THAT IT'S THE ILLNESS AND WHEN SHE GETS BETTER HER BLOOD SUGAR WILL GET BETTER. PT. JUST SAID AND FEEL DEFEATED. ENCOURAGED HER TO EAT RIGHT AND KEEP HER STRENGTH UP AND SHE SAID SHE WOULD.
[2019-11-25 08:00] VITALS: BP 98/52
--- NOTE | 2019-11-25 09:35 | NUR ---
placed pt on optiflow at 45l-50%. pts spo2 was 87-88% on 8l high flow. pt spo2 is 93% on optiflow
[2019-11-25 12:00] VITALS: BP 101/52
[2019-11-25 16:00] VITALS: BP 101/51
--- NOTE | 2019-11-25 19:50 | NUR ---
PATIENT RESTING IN BED AFTER GETTING OFF BEDSIDE COMMODE. PATIENT SATTING IN THE UPPER 80'S. ENCOURAGED PATIENT TO BREATHE THROUGH HER NOSE. O2 SAT UP TO 94%. PATIENT STATES OXYGEN TUBING IS HURTING HER NOSE AND SHE WON'T BE ABLE TO SLEEP WITH IT. REPOSITIONED FOR COMFORT. CALL LIGHT IN REACH.
[2019-11-25 20:00] VITALS: BP 94/56
--- NOTE | 2019-11-25 21:40 | NUR ---
PATIENT'S OPTIFLOW AT 50L WITH 45% O2 REMOVED AT THIS TIME AND PLACED ON HIGH FLOW N/C AT 10L N/C. SATTING 93% AT THIS TIME. RESPIRATIONS REGULAR AND NON-LABORED. CALL LIGHT IN REACH. WILL CONTINUE TO MONITOR.
[2019-11-26] VITALS: BP 98/52
[2019-11-26 05:56] LABS: CREATININE 1.46 mg/dL (0.55-1.02); POTASSIUM 3.9 mmol/L (3.5-5.1)
[2019-11-26 06:18] LABS: BASO # 0.1 10*3/uL (0.0-0.1); BASO % 0.6 % (0.0-1.0); EOS # 0.5 10*3/uL (0.0-0.4); EOS % 3.4 % (1.0-4.0); HEMATOCRIT 33.1 % (37.0-47.0); LYMPH # 1.3 10*3/uL (1.3-4.4); LYMPH % 8.8 % (27.0-41.0); MEAN CELL VOLUME 99.7 fl (81.0-99.0); MEAN CORPUSCULAR HGB 32.5 pg (27.0-31.0); MEAN CORPUSCULAR HGB CONC 32.6 g/dl (33.0-37.0); MEAN PLATELET VOLUME 9.4 fl (9.6-12.3); MONO # 1.2 10*3/uL (0.1-1.0); MONO % 8.6 % (3.0-9.0); NEUT # 11.2 10*3/uL (2.3-7.9); PLATELET COUNT AUTOMATED 349 10*3/uL (130-400); RED BLOOD COUNT 3.32 10*6/uL (4.10-5.10); RED CELL DISTRI WIDTH 14.1 % (0-14.5); WHITE BLOOD COUNT 14.4 10*3/uL (4.8-10.8)
[2019-11-26 08:00] VITALS: BP 109/55
[2019-11-26 12:00] VITALS: BP 98/69
[2019-11-26 14:32] LABS: ABG BASE EXCESS 0.8 mmol/L (-2.0-2.0); ARTERIAL BLOOD GAS PH 7.419 (7.35-7.45)
[2019-11-26 16:00] VITALS: BP 103/54
[2019-11-26 20:00] VITALS: BP 95/51
[2019-11-27] VITALS: BP 96/48
--- NOTE | 2019-11-27 06:22 | NUR ---
PATIENT MEDICATED WITH TYLENOL FOR COMPLAINTS OF HURTING ALL OVER. WILL MONITOR FOR EFFECTIVENESS. CALL LIGHT IN REACH.
[2019-11-27 06:55] LABS: BASO # 0.1 10*3/uL (0.0-0.1); BASO % 0.5 % (0.0-1.0); EOS # 0.5 10*3/uL (0.0-0.4); EOS % 4.7 % (1.0-4.0); HEMATOCRIT 32.1 % (37.0-47.0); LYMPH % 8.3 % (27.0-41.0); MEAN CORPUSCULAR HGB 32.4 pg (27.0-31.0); MEAN CORPUSCULAR HGB CONC 32.4 g/dl (33.0-37.0); MEAN PLATELET VOLUME 9.4 fl (9.6-12.3); MONO # 0.8 10*3/uL (0.1-1.0); MONO % 6.6 % (3.0-9.0); NEUT # 9.2 10*3/uL (2.3-7.9); NEUT % 79.3 % (47.0-73.0); PLATELET COUNT AUTOMATED 330 10*3/uL (130-400); RED BLOOD COUNT 3.21 10*6/uL (4.10-5.10); RED CELL DISTRI WIDTH 13.5 % (0-14.5); WHITE BLOOD COUNT 11.6 10*3/uL (4.8-10.8)
--- NOTE | 2019-11-27 07:00 | NUR ---
PATIENT RESTING IN BED WITH NO COMPLAINTS AT THIS TIME. 8L HIGH FLOW NC IN PLACE. DENIES ANY PAIN. SOB WITH MINIMAL EXERTION. VSS. CALL LIGHT IN REACH. WILL MONITOR.
[2019-11-27 07:14] LABS: ALBUMIN 2.4 gm/dl (3.1-4.5); CREATININE 1.15 mg/dL (0.55-1.02); POTASSIUM 3.7 mmol/L (3.5-5.1); TOTAL PROTEIN 6.9 gm/dL (6.4-8.2)
[2019-11-27 08:00] VITALS: BP 100/46
--- NOTE | 2019-11-27 09:00 | NUR ---
case management visits with patient, again discussed a discharge plan and she stated she would return home when medically stable, she will have [facility] following at home, patient denies any other home needs
--- NOTE | 2019-11-27 11:20 | NUR ---
PHYSICAL THERAPY Patient seen this am 1;1 for therapy visit and was sitting up in bedside chair upon therapist arrival. Patient identified by name / and presented with continuos O2-6L via NC. Patient recorded resting SpO2 97%, HR 93 bpm and was joined by OT academic assistant who was also present for observation only this session. Patient reports no new c/o' at this time and transfers sit to stand Min A, demonstrating very slow initial rise. Patient ambulates with use of wh walker, CGA, 30'x 1, demonstrating very slow dorian, decreased stride and cautious gait pattern. Patient fatigues quickly and returend to bedside chair for seated rest, recording SpO2 80%, HR 104 bpm. Patient received v/c for purse lip breathting technique and returned to SpO2 95%, HR 94 bpm after approx 1 minute seated rest. Patient also ambulated additional 20'x 1, wh walker, CGA and recorded SpO2 85%, HR 100 bpm and returned to near baseline once seated in under 1 minute. Patient remained in bedside chair with call light, tray table and telephone. Will continue per POC as tolerated, total treatment time 18 minutes. Jw Sapp, FREELANCE DATA ENTRY
--- NOTE | 2019-11-27 11:45 | NUR ---
OT NOTE Pt was seen this A.M. 1:1 for 20 minute OT session. Upon arrival pt was sitting upright in the recliner. Pt identified by name and . Pt presented to therapy with continuous 6L-O2 via NC which she remained on throughout the entire session. Pt's resting SpO2 was 97% and heart rate 93 bpm. Sit to stand completed from chair level with CGA and use of w/w for UE support. Pt required verbal prompts for proper hand placement for increased I and enhanced safety. Functional mobility was then completed around the room to the bathroom with SBA and use of w/w. Pt required min verbal prompts for O2 line management and walker safety. Throughout activity pt's SpO2 dropped to 80% and heart rate 104 bpm. Pt was educated on breathing and relaxation techniques and within aprox 60 seconds pt's SpO2 rasied back to 95% and heart rate 97 bpm. Challenged pt's static standing tolerance needed for increased I in self care tasks and functional transfers. Pt was able to tolerate aprox 2 minutes at a time before sitting due to SpO2 dropping. Pt was left sitting upright in the recliner with call light in hand, tray table in place, and body alarm activated for safety. Continue with rec D/C plan to SNF. WINSTON Schneider/Arsalan
[2019-11-27 12:00] VITALS: BP 105/36
--- NOTE | 2019-11-27 12:59 | NUR ---
PATIENT WORKED WITH PT TODAY AND WAS UP IN CHAIR. PLACED BACK IN BED AT THIS TIME AND POSTIONED FOR COMFORT. IV ABX INFUSING. CALL LIGHT IN REACH. WILL MONITOR.
[2019-11-27 13:00] VITALS: BP 98/42
--- NOTE | 2019-11-27 13:48 | NUR ---
PATIENT RESTING IN BED WITH NO COMPLAINTS. CALL LIGHT IN REACH. WILL CONTINUE TO MONITOR.
--- NOTE | 2019-11-27 15:10 | NUR ---
24 HR chart check completed.
[2019-11-27 16:00] VITALS: BP 104/56
--- NOTE | 2019-11-27 17:59 | NUR ---
PHARMACY NOTIFIED SYLVIE HAMMONDS LATE DUE TO WAITING ON [facility] TROUGH TO COME BACK AND PHARMACY TO RETIME.
[2019-11-27 20:00] VITALS: BP 95/52
--- NOTE | 2019-11-27 20:30 | NUR ---
ENTERED PT'S ROOM TO GIVE PT'S ANTIBIOTIC. PT'S LEFT ARM WAS SWOLLEN AROUND INSERTION SITE AND TENDER TO TOUCH AND FLUSH. PT STATED THAT IT WAS A LITTLE PAINFUL. NEW IV WAS INSERTED IN PT'S RT ARM. WILL CONTINUE TO MONITOR LEFT ARM SWELLING AT OLD INSERTION SITE.
--- NOTE | 2019-11-27 21:37 | NUR ---
PRN TYLENOL GIVEN TO PATIENT FOR GENERALIZED PAIN. WILL CONTINUE TO ASSESS EFFECTIVENESS.
--- NOTE | 2019-11-27 22:00 | NUR ---
CALLED DR. ZHANG AND NOTIFIED HIM THAT PT WAS YELLING SHE COULD NOT BREATH AND ASKED FOR VICKS VAPOR RUB. SEE NEW ORDER.
--- NOTE | 2019-11-27 22:36 | NUR ---
PRN TYLENOL WAS SLIGHTLY EFFECTIVE. PT STILL STATES SHE IS STILL HAVING SOME PAIN. WILL CONTINUE TO MONITOR PT.
--- NOTE | 2019-11-27 23:48 | NUR ---
ASSUME CARE OF PT. PT IS SLEEPING ON RT SIDE, 6L HFNC, ON CONTINUOUS POX, SPO2 94%. NO NEEDS MET. WILL CONT TO MONTIOR. CALL LIGHT WITHIN REACH.
[2019-11-28] VITALS: BP 96/44
--- NOTE | 2019-11-28 04:36 | NUR ---
SPO2 89-90 ON 6L HFNC. INCREASED TO 7L HFNC, SPO2 94%
[2019-11-28 08:00] VITALS: BP 98/44
[2019-11-28 08:29] LABS: BASO # 0.1 10*3/uL (0.0-0.1); BASO % 0.7 % (0.0-1.0); EOS # 0.7 10*3/uL (0.0-0.4); HEMATOCRIT 33.7 % (37.0-47.0); MEAN PLATELET VOLUME 9.2 fl (9.6-12.3); MONO # 0.9 10*3/uL (0.1-1.0); MONO % 8.1 % (3.0-9.0); NEUT # 8.4 10*3/uL (2.3-7.9); NEUT % 75.7 % (47.0-73.0); PLATELET COUNT AUTOMATED 349 10*3/uL (130-400); RED BLOOD COUNT 3.37 10*6/uL (4.10-5.10); RED CELL DISTRI WIDTH 13.5 % (0-14.5); WHITE BLOOD COUNT 11.1 10*3/uL (4.8-10.8)
--- NOTE | 2019-11-28 08:39 | NUR ---
OT NOTE Occupational therapy orders received this date, 11/28/2019. Patient is currently on caseload for OT, initial evaluation completed 11/22/2019. Will continue with POC. Thank you. Kavya Lara OTR/L
[2019-11-28 08:42] LABS: ALBUMIN 2.4 gm/dl (3.1-4.5); CREATININE 1.1 mg/dL (0.55-1.02); POTASSIUM 3.4 mmol/L (3.5-5.1); TOTAL PROTEIN 7.4 gm/dL (6.4-8.2)
--- NOTE | 2019-11-28 09:00 | NUR ---
case management visits with patient, she states she will return home with OV, case management will follow
--- NOTE | 2019-11-28 09:16 | NUR ---
MEDICATED WITH PRN PO TYLENOL FOR C/O HEADACHE R/T NASAL CONGESTION.
--- NOTE | 2019-11-28 10:00 | NUR ---
PRN PO TYLENOL EFFECTIVE, PER PATIENT.
[2019-11-28 10:19] LABS: ABG BASE EXCESS -0.2 mmol/L (-2.0-2.0); ARTERIAL BLOOD GAS PH 7.437 (7.35-7.45)
--- NOTE | 2019-11-28 11:10 | NUR ---
PHYSICAL THERAPY Patient seen this am 1;1 for therapy visit and was resting supine in bed upon therapist arrival. Patient identified by name / and presented with continuous O2-6L via NC. OT senior underwriting assistant was present this morning for observation only as patient transfers supine to sit EOB with MIN A x 1. Patient reports still having increased Nasal congestion, requiring v/c for purse lip breathing technique, recording resting SpO2 93%, HR 95 bpm. Patient performed sit to stand transfer, CGA, use of wh walker standing support, tolerating approx 2 minutes static stand without c/o. Patient then completed SPT to bedside chair, wh walker, CGA, and remained with call light, tray table and telephone. SpO2 93%, HR 96 bpm following treatment. Will continue per POC as tolerated, total treatment time 14 minutes. Patient fatiuges quickly and required seated rest break between each transfer / activity this session. Patient would benefit from SNF to improve standing balance / activity tolerance, LE strength and safe mobility. Jw Sapp, PLUCK TRIMMER
--- NOTE | 2019-11-28 11:10 | NUR ---
OT NOTE Pt was seen this A.M. 1:1 for 20 minute OT session. Upon arrival pt was supine in bed. Pt identified by name and and had no complaints at this time. Pt presented to therapy with continuous 6L-O2 via NC which she remained on throughout the entire session. Pt's resting SpO2 was 93% and heart rate 95 bpm. Pt then transferred supine to sit EOB with SBA. While sitting EOB pt donned B socks with supervision. Sit to stand completed from bed level with SBA and use of w/w for UE support. Challenged pt's static standing tolerance needed for increased I in self care tasks and functional transfers, pt was able to tolerate aprox 1-2 minutes at a time before sitting due to fatigue and feeling SOB. Pt's SpO2 dropped to 88% and heart rate 109 bpm. Pt was educated on pursed lip breathing and within aprox 45 seconds SpO2 raised to 92% and heart rate 95 bpm. Pt then completed functional mobility to the recliner with SBA and use of w/w with fair carry over of safety awareness and O2 line management. Pt was left sitting upright in the recliner with call light in hand, tray table in place, and body alarm activated for safety. Continue with rec D/C plan to SNF. WINSTON Schneider/Arsalan
[2019-11-28 12:00] VITALS: BP 119/61
[2019-11-28 16:00] VITALS: BP 134/73; BP 93/77
--- NOTE | 2019-11-28 19:46 | NUR ---
PATIENT RESTING IN BED, SPO2 89% WHILE TALKING ON 6L HFNC. ENCOURAGED TO DO PURSED LIP BREATHING. PATIENT REQUESTING MASK TO WEAR AT NIGHT INSTEAD OF NASAL CANNULA BECAUSE HER NOSE IS SO IRRITATED. RESPIRATORY IN ROOM AND AWARE. SPO2 98% ON 50% VENTURI. CALL LIGHT IN REACH.
[2019-11-28 20:00] VITALS: BP 107/58
--- NOTE | 2019-11-28 21:09 | NUR ---
TYLENOL GIVEN FOR BACK PAIN AND AMBIEN FOR C/O INSOMNIA. WILL MONITOR.
[2019-11-29] VITALS: BP 92/40
--- NOTE | 2019-11-29 04:04 | NUR ---
IV started left forearm with #24 protective cath after 1 attempts. Site prepped with Chloroprep. Sterile dressing applied. Patient tolerated procedure well. TAMANNA TOMAS
[2019-11-29 06:23] LABS: BASO # 0.1 10*3/uL (0.0-0.1); BASO % 0.5 % (0.0-1.0); EOS # 0.8 10*3/uL (0.0-0.4); EOS % 7.4 % (1.0-4.0); LYMPH % 8.7 % (27.0-41.0); MEAN CELL VOLUME 100.6 fl (81.0-99.0); MEAN CORPUSCULAR HGB 32.1 pg (27.0-31.0); MEAN CORPUSCULAR HGB CONC 31.9 g/dl (33.0-37.0); MEAN PLATELET VOLUME 9.3 fl (9.6-12.3); MONO # 0.8 10*3/uL (0.1-1.0); MONO % 7.2 % (3.0-9.0); NEUT # 8.2 10*3/uL (2.3-7.9); NEUT % 75.5 % (47.0-73.0); PLATELET COUNT AUTOMATED 361 10*3/uL (130-400); RED BLOOD COUNT 3.18 10*6/uL (4.10-5.10); RED CELL DISTRI WIDTH 13.4 % (0-14.5); WHITE BLOOD COUNT 10.9 10*3/uL (4.8-10.8)
[2019-11-29 06:51] LABS: ALBUMIN 2.2 gm/dl (3.1-4.5); CREATININE 1.07 mg/dL (0.55-1.02); POTASSIUM 3.7 mmol/L (3.5-5.1)
[2019-11-29 06:54] LABS: TOTAL PROTEIN 6.6 gm/dL (6.4-8.2)
[2019-11-29 08:00] VITALS: BP 100/56
--- NOTE | 2019-11-29 09:00 | NUR ---
case management visits with patient, she states she isn't feeling well today. discharge plans are for patient to return home with [facility]. case management will continue to follow for any other needs
--- NOTE | 2019-11-29 09:10 | NUR ---
MEDICATED WITH PRN PO TYLENOL FOR C/O BACK PAIN.
--- NOTE | 2019-11-29 09:30 | NUR ---
PRN PO TYLENOL SOMEWHAT EFFECTIVE FOR BACK PAIN, PER PATIENT.
--- NOTE | 2019-11-29 09:50 | NUR ---
PHYSICAL THERAPY Patient seen this am 1;1 for therapy visit and was sitting up in bedside chair upon therapist arrival. Patient identified by name / and presented with continuous O2-5L via NC, IV treatment and reports being upset with personal patient care, especially having to wait for help to go to the bathroom. Patient recorded resting SpO2 93%, HR 98 bpm prior to treatment. OT assistant librarian was also present for observation as patient transfers sit to stand Min A, then ambulates with use of wh walker, CGA, demonstrating very slow, cautious gait pattern, 15'x 1, however unable to make it into the bathroom secondary to quick onset of fatigue / SOB. Patient needed seated rest break at foot of bed, recording SpO2 90%, HR 104 bpm, requiring v/c for purse lip breathing technique. Patient returned to bedside chair and remained with call light, tray table, telephone and SpO2 91%, HR 104 bpm. Will continue per POC as tolerated, total treatment time 15 minutes. Jw Sapp, TRUCK ENGINE TECHNICIAN
--- NOTE | 2019-11-29 10:06 | NUR ---
OT NOTE Pt was seen this A.M. 1:1 for 26 minute OT session. Upon arrival pt was sitting upright in the recliner. Pt identified by name and and had no complaints at this time. Pt presented to therapy with continuous 5L-O2 via NC which she remained on throughout the entire session. Pt's resting SpO2 was 93% and heart rate 98 bpm. Pt completed sit to stand from chair level with Blu and use of w/w for UE support. Educated pt on proper hand placement for increased I and improved technique, pt continued to present throughout session with poor carryover. Attempted to complete functional mobility to the bathroom and after just making it around the bed (aprox 15 feet) pt had quick onset of fatigue and feeling SOB resulting in a seated rest break. Pt's SpO2 reading 91% and heart rate 104 bpm. Pt was educated on relaxation and breathing techniques. Functional mobility was then completed back to the recliner (aprox 15 feet), once return to the recliner pt again had complaints of quick onset of fatigue and feeling SOB. SpO2 reading 90% and heart rate 104 bpm and within aprox 30 seconds raised back to 94%. Pt then completed seated towel exercises over all planes for 1 X 10 to increase and restore maximum functional strength. Pt was left sitting reclined in the recliner with call light in hand, tray table in place, and phone in reach. Continue with rec D/C plan to SNF. ALINE Schneider
--- NOTE | 2019-11-29 11:15 | NUR ---
PT FIO2 DECREASED TO 4LHFNC. RN NOTIFIED
[2019-11-29 12:00] VITALS: BP 94/42
--- NOTE | 2019-11-29 12:40 | NUR ---
PTS FIO2 TITRATED TO 3LHFNC, SPO2 97%
--- NOTE | 2019-11-29 12:51 | NUR ---
MEDICATED WITH PRN PO TYLENOL FOR C/O HEAD AND BACK ACHING.
--- NOTE | 2019-11-29 13:30 | NUR ---
PRN PO TYLENOL EFFECTIVE, PER PATIENT.
[2019-11-29 16:00] VITALS: BP 93/50
[2019-11-29 20:00] VITALS: BP 118/50
--- NOTE | 2019-11-29 23:05 | NUR ---
PO AMBIEN ADMINISTERED PER ORDER. PT IS VERY UPSET THAT AMBIEN WAS NOT REORDERED FOR EARLIER THIS EVENING. RN EXPLAINED THAT MEDICATIONS SUCH THESE AUTO DISCONTINUE THEMSELVES AFTER A CERTAIN PERIOD OF TIME. RN APOLOGIZED FOR THIS DELAYING THE ADMINISTRATION OF THE MEDICATION. PATIENT REPLIES "I DON'T CARE ABOUT YOUR SORRY. THAT ISN'T GOING TO HELP ANYTHING. SOMEBODY WILL HEAR ABOUT THIS. IT WOULD'VE GONE UNDER THE RUG IF I DIDN'T SAY ANYTHING." RN AGAIN APOLOGIZED FOR THE INCONVENIENCE. PT REPOSITIONED FOR COMFORT. BED LOCKED IN LOW POSITION. BED ALARM INTACT. CALL LIGHT IN REACH. WILL CONTINUE TO MONITOR.
[2019-11-30] VITALS: BP 113/67
--- NOTE | 2019-11-30 07:41 | NUR ---
PT RESTING IN BED. NO DISTRESS NOTED. WILL MONITOR
[2019-11-30 08:00] VITALS: BP 95/69
--- NOTE | 2019-11-30 08:45 | NUR ---
PHYSICAL THERAPY Patient seen this am 1;1 for therapy visit and was resting supine in bed upon therapist arrival. Patient identified by name / and presented with continuos O2-6L via NC, recording SpO2 96%, HR 91 bpm at rest. OT rehabilitation assistant was also present for observation only this session as patient voices no new c/o's at this time. Patient transfers supine to sit EOB with SBA and sit to stand CGA with v/c needed for proper hand placement. Patient ambulated 8'x 1 to [facility] and "plopped" down prompting another v/c for proper hand placement to improve transfer safety. Patient also fatiuged quickly with increased SOB, recording SpO2 89%, HR 102 bpm. Following brief seated rest, patient ambulated addtional 15'x 1, wh walker, [facility], demonstrating very slow dorian, decreased stride and bouts of unsteady gait pattern while returning to bedside chair. Patient remained in chair recording SpO2 90%, HR 104 bpm, with call light, tray table and telephone. Will continue per POC as tolerated, total treatment time 14 minutes. Jw Sapp, SUPERINTENDENT RADIO COMMUNICATIONS
--- NOTE | 2019-11-30 09:00 | NUR ---
OT NOTE Pt was seen this A.M. 1:1 for 20 minute OT session. Upon arrival pt was supine in bed. Pt identified by name and and had complaints of generalized weakness and fatigue. Pt presented to therapy with continuous 6L-O2 via NC which she remained on throughout the entire session. Pt's resting SpO2 was 96% and heart rate 91 bpm. Pt transferred supine to sit EOB with SBA and use of bed rail for UE support. While sitting EOB pt donned B socks with SBA. Sit to stand then completed from bed level with CGA and use of w/w for UE support followed by functional mobility to the bedside commode with CGA and use of w/w. Upon arriving to the bedside commode (aprox 8 feet) pt was requesting to sit due to feeling SOB, SpO2 dropped to 89% and heart rate 104 bpm. Pt was educated on breathing techniques and relaxation. Pt transferred on/off bedside commode with CGA and use of w/w. Functional mobility was then completed back to the recliner chair with CGA and use of w/w. SpO2 dropped to 90% and heart rate 106 bpm. Pt was left sitting upright in the recliner with call light in hand, tray table in place, and body alarm activated for safety. Continue with rec D/C plan to SNF. ALINE Schneider
--- NOTE | 2019-11-30 09:00 | NUR ---
case management visits with patient, she is sitting in a chair in room, oxygen on continuously, patient has become very weak, increased oxygen requirements and would require senior living for rehab and pulmonary prior to returning home, talked with her regarding this and she became angry and stated she was going home when able and she would manage. she will have [facility] when medically stable for discharge, case management will follow
[2019-11-30 11:21] LABS: ABG BASE EXCESS -0.2 mmol/L (-2.0-2.0); ARTERIAL BLOOD GAS PH 7.448 (7.35-7.45)
[2019-11-30 12:00] VITALS: BP 114/69
[2019-11-30 16:00] VITALS: BP 96/55
--- NOTE | 2019-11-30 18:33 | NUR ---
PT REQUESTED AND GIVEN TYLENOL FOR C/O HEADACHE WILL MONITOR
[2019-11-30 20:00] VITALS: BP 128/52
[2019-12-01] VITALS: BP 97/56
--- NOTE | 2019-12-01 02:33 | NUR ---
24 HR chart check completed.
[2019-12-01 05:44] LABS: ALBUMIN 2.2 gm/dl (3.1-4.5); ALKALINE PHOSPHATASE 39 U/L (45-117); BUN 15 mg/dl (7-24); CHLORIDE 110 mmol/L (98-107); CREATININE 0.98 mg/dL (0.55-1.02); POTASSIUM 3.5 mmol/L (3.5-5.1); SGOT/AST 29 IU/L (3-35); SGPT/ALT 25 U/L (12-78); SODIUM 141 mmol/L (136-145); TOTAL PROTEIN 6.5 gm/dL (6.4-8.2)
[2019-12-01 06:31] LABS: BASO % 0.2 % (0.0-1.0); EOS # 0.6 10*3/uL (0.0-0.4); HEMATOCRIT 32.4 % (37.0-47.0); LYMPH # 1.1 10*3/uL (1.3-4.4); MEAN CORPUSCULAR HGB 31.8 pg (27.0-31.0); MEAN CORPUSCULAR HGB CONC 31.8 g/dl (33.0-37.0); MEAN PLATELET VOLUME 9.5 fl (9.6-12.3); MONO # 0.7 10*3/uL (0.1-1.0); MONO % 5.7 % (3.0-9.0); NEUT # 9.7 10*3/uL (2.3-7.9); NEUT % 79.4 % (47.0-73.0); PLATELET COUNT AUTOMATED 416 10*3/uL (130-400); RED BLOOD COUNT 3.24 10*6/uL (4.10-5.10); RED CELL DISTRI WIDTH 13.3 % (0-14.5); WHITE BLOOD COUNT 12.2 10*3/uL (4.8-10.8)
--- NOTE | 2019-12-01 07:13 | NUR ---
BLOOD SUGAR ON BMP WAS 158. COVERAGE GIVEN PER S/S. SEE EMAR.
[2019-12-01 08:00] VITALS: BP 106/51
--- NOTE | 2019-12-01 08:07 | NUR ---
PT RESTING IN BED. NO DISTRESS NOTED. WILL MONITOR
--- NOTE | 2019-12-01 09:45 | NUR ---
PHYSICAL THERAPY Patient seen this am 1;1 for therapy visit and was supine in bed upon therapist arrival. Patient identified by name / , voicing mild 3/10 low back pain while on continuos O2-5L via NC and IV treatment. OT pediatric physical therapy assistant was also present for observation only this session as patient transfers supine to sit EOB with MIN A x 1. Patient resting SpO2 93%, HR 91 bpm prior to patient performing sit to stand CGA, use of wh walker standing support. Patient ambulated 15'x 1, wh walker, CGA, demonstrating very slow, cautious gait pattern and sudden, quick onset of fatigue / SOB. Patient recorded SpO2 79%, HR 99 bpm upon return to EOB sit. Patient received v/c for purse lip breathing technique, which took approx 4 minutes of seated rest to return to SpO2 90%, HR 90 bpm. Patient transfered back to supine in bed with HOB elevated and remained with call light, tray table, telephone, bed alarm for safety. Will continue per POC as tolerated, total treatment time 14 minutes. Jw Sapp, [employer]
--- NOTE | 2019-12-01 10:05 | NUR ---
OT NOTE Pt was seen this A.M. 1:1 for 20 minute OT session. Upon arrival pt was supine in bed. Pt identified by name and and had complaints of generalized weakness and fatigue. Pt presented to therapy with continuous 5L-O2 via NC which she remained on throughout the entire session. Pt's resting SpO2 was 93% and heart rate 91 bpm. Pt transferred supine to sit EOB with Blu for assist with UB. Sit to stand then completed from bed level with Blu and use of w/w. Functional mobility was then completed to the bathroom door and back (aprox 15 feet) and required a seated rest break due to SpO2 dropping to 78% and heart rate 99 bpm. After aprox 4 minutes of pursed lip breathing and relaxation pt's SpO2 raised to 90% and heart rate 90 bpm. Pt then transferred back into bed sit to supine with SBA and was repostioned in bed with maxA X 2. There she was left with call light in hand, tray table in place, and bed alarm activated for safety. Continue with rec D/C plan to SNF. WINSTON Schneider/Arsalan
--- NOTE | 2019-12-01 10:45 | NUR ---
PT TO SURGERY FOR A MIDLINE
--- NOTE | 2019-12-01 11:36 | NUR ---
PHYSICAL THERAPY CO-SIGN I approve of the Physical Therapy notes written above. Rachelle Recio PT
[2019-12-01 12:00] VITALS: BP 103/50
--- NOTE | 2019-12-01 12:22 | NUR ---
OCCUPATIONAL THERAPY CO-SIGN I approve of the Occupational Therapy notes written above. VON BOUDREAUX, OTR/L
--- NOTE | 2019-12-01 14:27 | NUR ---
PT REQUESTED AND GIVEN TYLENOL FOR C/O HEADACHE FELICIA IN TO SEE PT WILL CONTINUE TO MONITOR
--- NOTE | 2019-12-01 15:00 | NUR ---
REPORT RECEIVED FROM OFFGOING NURSE, INTRODUCED TO PATIENT, BED IN LOW POSITION, WHEEL LOCKS ENGAGED, SIDE RAILS UP X 2, BED ALARM ON, CALL LIGHT WITHIN REACH NO NEEDS VOICED, WHITE BOARD UPDATED.
[2019-12-01 16:00] VITALS: BP 118/53
[2019-12-01 20:00] VITALS: BP 118/50
[2019-12-02] VITALS: BP 96/48
--- NOTE | 2019-12-02 08:37 | NUR ---
Pt up out of bed to chair with assistance.
--- NOTE | 2019-12-02 09:04 | NUR ---
Eileen called from monitor room. Pox noted to be 71% on monitor slave at desk. I checked on pt and pt had o2 out of nose. States she took it out to wipe her nose and forgot to put it back in. O2 reapplied.
--- NOTE | 2019-12-02 09:06 | NUR ---
Pox is now 93% on 5l.
--- NOTE | 2019-12-02 09:10 | NUR ---
Pt c/o liquid stools. States this is the third episode of diarrhea she has had today. Cdiff was ordered by Sabrina Ruiz and sent to lab.
[2019-12-02 12:00] VITALS: BP 106/48
[2019-12-02 16:00] VITALS: BP 117/51
--- NOTE | 2019-12-02 16:26 | NUR ---
Pt up out of bed to bedside commode and then back to bed. Had a small loose bm. Pox 84% on 5l high flow after transfering back to bed.
--- NOTE | 2019-12-02 16:40 | NUR ---
Pox 91% on 5l.
--- NOTE | 2019-12-02 19:42 | NUR ---
PATIENT RESTING IN BED. C/O NASAL CONGESTION DUE TO OXYGEN SUPPLEMENTATION. O2 IS HUMIDIFIED. DENIES ANY SHORTNESS OF BREATH. BED IN LOWEST POSITION, CALL LIGHT IN REACH
[2019-12-02 20:00] VITALS: BP 125/50
--- NOTE | 2019-12-02 21:46 | NUR ---
MEDICATED WITH PRN TYLENOL FOR C/O BACK PAIN. REPOSITIONED FOR COMFORT. WILL MONITOR
--- NOTE | 2019-12-02 22:46 | NUR ---
PATIENT SLEEPING. MEDICATION SEEMS EFFECTIVE
[2019-12-03] VITALS: BP 108/55
--- NOTE | 2019-12-03 02:40 | NUR ---
PATIENT RESTING IN BED WITH EYES CLOSED. RESPS EASY AND REGULAR ON NASAL CANNULA. BED IN LOW POSITION, CALL LIGHT IN REACH
--- NOTE | 2019-12-03 03:43 | NUR ---
24 HR chart check completed.
[2019-12-03 08:00] VITALS: BP 128/50
--- NOTE | 2019-12-03 11:30 | NUR ---
PT. PLACED ON NC AT 5 LITER AND HAS BEEN TITRATED TO 3L. PT. WAS DECREASED TO 2L AND DESATURATED TO 86%, RETURNED TO 3L. PT. IS NOW ON 3LM AND SAT 96% AT 1447.
[2019-12-03 12:00] VITALS: BP 130/56
--- NOTE | 2019-12-03 14:00 | NUR ---
PATIENT UP FROM BED AND ASSISTED TO CHAIR AT THIS TIME. PULSE OX DROPPED TO 70% ON 3L. INCREASED OXYGEN TO 4.5L O2. PULSE OX BACK UP TO 90% AFTER PT RELAXED IN CHAIR.
--- NOTE | 2019-12-03 15:15 | NUR ---
PT. O2 WAS INCREASED BY RN WHEN PT WAS UP TO BEDSIDE CHAIR, O2 WAS AT 4.5 NOT 3L, SAT WAS 97%, O2 WAS DECREASED TO 3L, WITH PT. RESTING IN CHAIR, SAT ON 3L AT REST 91%. RN AWARE.
--- NOTE | 2019-12-03 15:51 | NUR ---
PT. REMAINS ON 3L O2, SAT IN 94% AT THIS TIME, HOME O2 ASSESSMENT HELD UNTIL TOMORROW, PER FELICIA LOVE REQUEST, TO COINCIDE WITH POSSIBLE DISCHARGE WEDNESDAY.
[2019-12-03 16:00] VITALS: BP 117/49
--- NOTE | 2019-12-03 16:51 | NUR ---
PT MEDICATED WITH TYLENOL FOR COMPLAINTS OF BACK AND LEG PAIN 12/19. WILL MONITOR FOR EFFECTIVENESS.
--- NOTE | 2019-12-03 17:51 | NUR ---
PER PATIENT, TYLENOL HAS BEEN EFFECTIVE.
[2019-12-03 20:00] VITALS: BP 122/63
--- NOTE | 2019-12-03 21:16 | NUR ---
MEDICATED WITH PRN TYLENOL FOR C/O BACK PAIN. WILL MONITOR
--- NOTE | 2019-12-03 22:16 | NUR ---
MEDICATION EFFECTIVE PER PATIENT
[2019-12-04] VITALS: BP 114/50
--- NOTE | 2019-12-04 04:52 | NUR ---
PATIENT UP TO BEDSIDE COMMODE. DESATED TO 75% ON 4 LITERS. INCREASED OXYGEN TO 5LITERS AND SATURATION ONLY INCREASED TO 88%. PATIENT CURRENTLY ON 6 LITERS AT 94%.
[2019-12-04 06:50] LABS: BASO % 0.5 % (0.0-1.0); EOS # 0.7 10*3/uL (0.0-0.4); EOS % 8.3 % (1.0-4.0); HEMATOCRIT 31.1 % (37.0-47.0); LYMPH % 12.6 % (27.0-41.0); MEAN CELL VOLUME 100.3 fl (81.0-99.0); MEAN CORPUSCULAR HGB 31.9 pg (27.0-31.0); MEAN CORPUSCULAR HGB CONC 31.8 g/dl (33.0-37.0); MEAN PLATELET VOLUME 9.5 fl (9.6-12.3); MONO # 0.6 10*3/uL (0.1-1.0); NEUT # 5.6 10*3/uL (2.3-7.9); NEUT % 69.5 % (47.0-73.0); PLATELET COUNT AUTOMATED 366 10*3/uL (130-400); RED CELL DISTRI WIDTH 13.6 % (0-14.5)
[2019-12-04 07:03] LABS: BUN 12 mg/dl (7-24); CREATININE 1.03 mg/dL (0.55-1.02)
[2019-12-04 08:00] VITALS: BP 116/50
--- NOTE | 2019-12-04 10:57 | NUR ---
PT ASSESSED FOR HOME OXYGEN. PT QUALIFIES PT AT REST SPO2 77% RA, PLACED PT ON 2LNC, SPO2 80% INCREASED FIO2 TO 3LNC, SPO2 87-88%, INCREASED FIO2 TO 4LNC SPO2, HR 101, RR 18, B/P 114/50. PT AMBULATED PTS SPO2 91-92% ON 4LNC. RN NOTIFIED AND NOTIFIED
[2019-12-04 12:00] VITALS: BP 112/52
--- NOTE | 2019-12-04 14:53 | NUR ---
24 HR chart check completed.
--- NOTE | 2019-12-04 15:13 | NUR ---
tylenol given for c/o headache. will monitor/
[2019-12-04 16:00] VITALS: BP 132/80
[2019-12-04 20:00] VITALS: BP 125/54
[2019-12-05] VITALS: BP 118/52
[2019-12-05 07:38] LABS: MEAN CELL VOLUME 99.4 fl (81.0-99.0); MEAN CORPUSCULAR HGB 31.4 pg (27.0-31.0); MEAN CORPUSCULAR HGB CONC 31.6 g/dl (33.0-37.0); MEAN PLATELET VOLUME 9.7 fl (9.6-12.3); PLATELET COUNT AUTOMATED 412 10*3/uL (130-400); RED BLOOD COUNT 3.22 10*6/uL (4.10-5.10); RED CELL DISTRI WIDTH 13.4 % (0-14.5); WHITE BLOOD COUNT 10.5 10*3/uL (4.8-10.8)
[2019-12-05 07:51] LABS: CHLORIDE 108 mmol/L (98-107); POTASSIUM 3.4 mmol/L (3.5-5.1); SODIUM 140 mmol/L (136-145)
[2019-12-05 07:55] LABS: PLATELET SUFFICIENCY HIGH (NORMAL); TOTAL CELLS COUNTED 100 #CELLS
[2019-12-05 07:56] LABS: BUN 11 mg/dl (7-24); CREATININE 0.85 mg/dL (0.55-1.02)
[2019-12-05 08:00] VITALS: BP 100/40
--- NOTE | 2019-12-05 08:00 | NUR ---
PHYSICAL THERAPY Patient seen this am 1;1 for therapy visit and was resting supine in bed upon therapist arrival. Patient identified by name / and presented with continuous O2-6L via NC. Patient reports no new c/o's at this time, stating she actually feels a little better today. OT clothing sales assistant was also present for observation this session as patient recorded resting SpO2 93%. HR 84 bpm. Patient transfers supine to sit EOB with MIN A x 1, then sit to stand CGA with use of wh walker standing support. Patient ambulated 10'x 1 to bathroom, CGA and demonstrated quick onset of fatigue / SOB. Patient needed v/c for purse lip breathing technique, recording SpO2 79%. HR 101 bpm as patient sat "slouched' on toilet. Patient needed appprox 7 minutes seated rest to collect herself, ambulating 5'x 1 to bedside chair that was brought up to bathroom doorway. Patient remained in bedside chair with call light, tray table and telephone, recording SpO2 88%, HR 94 bpm as patinet attendent arrived for patient care. Will continue per POC as tolerated, total treatment time 17 minutes. Jw Sapp, VETERANS SERVICES SPECIALIST
--- NOTE | 2019-12-05 08:13 | NUR ---
OT NOTE Pt was seen this A.M. 1:1 for 24 minute OT session. Upon arrival pt was supine in bed. Pt identified by name and and had no complaints at this time, pt reported "so far, so good." Pt presented to therapy with continuous 6L-O2 via NC which she remained on throughout the entire session. Pt's resting SpO2 was 93% and heart rate 84 bpm. Pt then transferred supine to sit EOB with Blu for assist with UB. Sit to stand completed from bed level with Blu and use of w/w followed by functional mobility to the bathroom with Blu and use of w/w. Upon arrival to the bathroom (aprox 10 feet) pt's SpO2 dropped to 79% and heart rate 101 bpm. Pt transferred on to the standard commode with Blu due to poor safety awareness and becoming impulsive due to feeling anxious/SOB. While sitting on the commode pt was sitting with very slouched/forward flexed posture and head down. Educated pt on breathing techniques and correcting her posture, pt had little to no carry over. After aprox 10 minutes of a seated rest break pt's SpO2 raised to 88% and heart rate 94 bpm. Sit to stand completed from commode level with modA due to reports of feeling weak and SpO2 reading 87%. Clothing management completed with modA and toilet hygiene completed with maxA. Standing pivot then completed to the recliner with Blu where she was left sitting upright with call light in hand, tray table in place, and phone in reach. Continue with rec D/C plan to SNF. ALINE Schneider
--- NOTE | 2019-12-05 08:30 | NUR ---
PT UP TO CHAIR AFTER WORKING WITH PHYSICAL AND OCCUPATIONAL THERAPIES. NO ACUTE DISTRESS NOTED AT THIS TIME.
--- NOTE | 2019-12-05 09:58 | NUR ---
DR HARE IN TO SEE PT.
[2019-12-05] MEDS ORDERED: Flonase 0.05% 120 Me NAS (10:50)
[2019-12-05] MEDS ORDERED: OXYGEN NAS (10:50)
[2019-12-05] MEDS ORDERED: XARE15TA PO (10:50)
--- NOTE | 2019-12-05 11:26 | NUR ---
Spoke to Ismael at [facility] regarding patient discharging to home today. Will fax discharge clinical when available.
--- NOTE | 2019-12-05 11:47 | NUR ---
MAIL SORTER spoke with Adam, Per RN Jessica (Patients Granddaughter), family is to transport the patient.
[2019-12-05 12:00] VITALS: BP 102/42
--- NOTE | 2019-12-05 16:20 | NUR ---
DISCHARGE INSTRUCTIONS REVEIWED WITH PT AND THEN WITH PT'S DAUGHTER,NAOMY OVER THE PHONE. RIGHT MIDLINE HL D/C'D INTACT. DSG APPLIED.
--- NOTE | 2019-12-06 07:30 | NUR ---
PHYSICAL THERAPY CO-SIGN I approve of the Physical Therapy notes written above. Rachelle Recio PT
--- NOTE | 2019-12-06 07:41 | NUR ---
OCCUPATIONAL THERAPY CO-SIGN I approve of the Occupational Therapy notes written above. VON BOUDREAUX, OTR/L
--- NOTE | 2019-12-06 07:45 | NUR ---
Faxed discharge summary and instructions to [facility]
== END 2019-12-05 16:15 | disposition hospice, home (50) | DRG 871 ==
LOC: ED 12:46 → EDHOLD 15:24 → 4E 15:24
PROVIDERS: Emergency Medicine; Family Medicine; Internal Medicine; Internal Medicine Critical Care Medicine; Registered Nurse; Student in an Organized Health Care Education/Training Program; ADMIT Internal Medicine
DX: A41.9 Sepsis, unspecified organism (principal); J15.6 Pneumonia due to other Gram-negative bacteria; J96.01 Acute respiratory failure with hypoxia; J44.0 Chronic obstructive pulmonary disease with (acute) lower respiratory infection; I13.0 Hypertensive heart and chronic kidney disease with heart failure and stage 1 through stage 4 chronic kidney disease, or unspecified chronic kidney disease; D68.59 Other primary thrombophilia; J84.9 Interstitial pulmonary disease, unspecified; N17.9 Acute kidney failure, unspecified; I50.42 Chronic combined systolic (congestive) and diastolic (congestive) heart failure; E11.65 Type 2 diabetes mellitus with hyperglycemia; N18.3 Chronic kidney disease, stage 3 (moderate); R54 Age-related physical debility; E11.42 Type 2 diabetes mellitus with diabetic polyneuropathy; R65.20 Severe sepsis without septic shock; Z88.1 Allergy status to other antibiotic agents; Z88.8 Allergy status to other drugs, medicaments and biological substances; Z90.49 Acquired absence of other specified parts of digestive tract; Z87.442 Personal history of urinary calculi; Z82.49 Family history of ischemic heart disease and other diseases of the circulatory system; Z79.899 Other long term (current) drug therapy; Z79.01 Long term (current) use of anticoagulants; Z79.84 Long term (current) use of oral hypoglycemic drugs; Z66 Do not resuscitate; Z51.5 Encounter for palliative care; Z86.718 Personal history of other venous thrombosis and embolism